=== PATIENT | female | born 2000 | race Hispanic/Latino ===

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

== ENCOUNTER 2022-08-31 16:22 | Emergency (ER) | payer BC, OTHER ==
--- OUTSIDE RECORDS SUMMARY | 2022-08-31 16:26 | XMS REPORT | Continuity of Care Document ---
:2000 Author Organization [facility] t Address [address] [place] [address] Care Team Providers Name Role Phone PCP, PATIENT DOES NOT HAVE A Primary Care Physician UnavailSheri Avilez Attending Clinician Unavailable CRISPIN CHANDLER Attending Clinician Unavailable Crispin Chandler MD Attending Clinician [phone] CLEMENT MARTINEZ Attending Clinician Unavailable Clement Martinez MD Attending Clinician Doctor Unassigned, [place] Attending Clinician Unavailable Coral Moise Attending Clinician Sheri Wilkinson Admitting Clinician Unavailable Physician, No Primary or Family Admitting Clinician UnavailWilliam Agustin Admitting Clinician Unavailable KNOW, DOES_NOT Admitting Clinician Unavailable Payers Payer Name Policy Type Policy Number Effective Date Expiration Date S silvino [facility] [id number] 2018 00:00:00 [facility] 2 [id number] 2021 00:00:00 [facility] [id number] 2021 [place] STAR 00:00:00 Problems Condition Condition Condition Status Onset Resolution Last Treating Co mments Source Name Details Category Date Date Treatment Clinician Date No known No known Disease Kelse y active active Seybold problems problems Allergies, Adverse Reactions, Alerts Allergy Allergy Status Severity Reaction(s) Onset Inactive Treating Comm ents Source Name Type Date Date Clinician No Known DA Active U 2020-0 [facility] No Known DA Active U 2020-0 [facility] 9[facility] 00 [facility] No Known DA Active U 2020-0 [facility]ie 6-17 [facility] 00 [facility] No Known DA Active U 2020-0 [facility] Allergie 6-17 [facility] 00 [facility] No Known DA Active U 2020-0 [facility] Allergie 3-19 [facility] 00:[facility] 00 [facility] No Known DA Active U 2020-0 [facility] Allergie 3-19 [facility] 00:[facility] 00 [facility] NO KNOWN Drug Active Univers ALLERGIE Class ity of S [facility] Social History Social Habit Start Date Stop Date Quantity Comments Source Exposure to Not sure Marylou rosales SARS-CoV-2 (event) Tobacco use and 2021-03-11 2021-03-11 Never used Universit y [facility] exposure 00:00:00 00:00:00 Medical Branch Sex Assigned At [birth year] Marylou Se ybold 00:00:00 00:00:00 Smoking Status Start Date Stop Date Source Never smoker [facility] Medications Ordered Filled Start Stop Current Ordering Indication Dosage Frequency Signature Comments Components Source Medication Medication Date Date Medication? Clinician (SIG) Name Name Escitalopra 2020-11 Yes [id number] 10mg Take 1 Marylou m Oxalate 0-21 tablet (10 Seyb old 10 MG oral 00:00: mg total) Tablet 00 by mouth daily hydrOXYzine 2020-11 Yes Marylou Pamoate 50 0-12 Seybold MG oral 00:00: Capsule 00 Escitalopra 2020-11- No Kelse y m Oxalate 0-12 10-21 Seybold 10 MG oral 00:00: 00:00 Tablet 00 :00 Ferrous Yes [id number] 325mg Take 1 Fady sey Sulfate 325 5-07 tablet Seybol d (65 Fe) MG 00:00: (325 mg oral Tablet 00 total) by mouth daily (with breakfast) iopamidol 2020- No 100mL 100 mL, Uni vers (ISOVUE 03-12 Intravenou ity o f 300-500 mL) 09:15: 09:15 s, ONCE, 1 [place] injection 00 :00 dose, Tue Medic al 100 mL 03/12/21 at Branch 0415, Routine acetaminoph 2020- No 650mg 650 mg, U nivers en 03-12 Oral, ity of (TYLENOL) 03:15: 02:08 ONCE, 1 [place] tablet 650 00 :00 dose, Mon Medi saad mg 03/11/21 at Branch 2215, NINI cefTRIAXone No 1000mg 1,000 mg, Univers (ROCEPHIN) 03-12 IV ity of 1,000 mg in 03:00: 02:36 Piggyback, [place] NaCl 0.9% 00 :00 ONCE, 1 Medical (NS) 50 mL dose, Mon Bran ch MINI-BAG 03/11/21 at 2200, 50 mL
Reas on for Anti-Infec tive: Documented Infection< br>Documen suzi Infection Site: Urine
D uration of Therapy: Other (see Comments) ondansetron No 4mg 4 mg, Slow Univers (ZOFRAN 03-12 IV Push, ity of (PF)) 02:00: 00:58 ONCE, 1 [place] injection 4 00 :00 dose, Mon Med ical mg 03/11/21 at Branch 2100, NINI FENTanyl PF No 50ug 50 mcg, Un sammie (SUBLIMAZE 5-04 05-04 Slow IV ity o f (PF)) 02:00: 00:59 Push, [place] injection 00 :00 ONCE, 1 Medical 50 mcg dose, Mon Branch 03/11/21 at 2100, Routine NaCl 0.9% 2020-0 2020- No 1000mL at 999 Uni vers (NS) bolus 03-12 05-04 mL/hr, ity of infusion 01:00: 02:05 1,000 mL, Chuck as 1,000 mL 00 :00 IV Medical Infusion, Branch ONCE, 1 dose, 03/11/21 at 2000, NINI No known No Univers medications ity [facility] No known No Univers medications ity [facility] No known No Univers medications [facility] Immunizations Ordered Immunization Filled Immunization Date Status Commen ts Source Name Name HPV (Human 2020-09-21 Completed Marylou Quiles Papillomavirus) 00:00:00 Meningococcal 2020-06-27 Completed Marylou Wylie old Vaccine- 00:00:00 Conjugate(Menactra) HPV (Human 2020-06-21 Completed Marylou Quiles Papillomavirus) 00:00:00 HPV (Human 2019-09-15 Completed Marylou Quiles Papillomavirus) 00:00:00 HEPATITIS A- 2013-06-03 Completed Marylou bains PEDI/ADOL 00:00:00 Meningococcal 2013-06-03 Completed Marylou cuellar Vaccine- 00:00:00 Conjugate(Menactra) Tdap- (Boostrix, 2013-06-03 Completed Marylou ramirez Adacel) 00:00:00 Varicella Vaccine 2013-06-03 Completed Marylou Quiles 00:00:00 DTaP Unspecified 2007-03-01 Completed Marylou ramirez 00:00:00 Pneumococcal Vaccine, 2007-03-01 Completed Fady Quiles Conjugate 7 00:00:00 IPV- Inactivated 2007-03-01 Completed Marylou juaresboherson Polio Vaccine 00:00:00 Varicella Vaccine 2007-03-01 Completed Marylou Quiles 00:00:00 Hepatitis B, 2004-01-24 Completed Marylou bains Adolescent Or 00:00:00 Pediatric MMR- Measles, Mumps, 2004-01-24 Completed Norma Quiles Rubella 00:00:00 IPV- Inactivated 2004-01-24 Completed Marylou S eybold Polio Vaccine 00:00:00 Varicella Vaccine 2004-01-24 Completed Marylou Isbellybold 00:00:00 DTaP Unspecified 2003-12-20 Completed Marylou Godinez eybold 00:00:00 Hib (HbOC) 2003-12-20 Completed Marylou Isbellybold 00:00:00 Pneumococcal Vaccine, 2003-12-20 Completed Fady lozada Seybold Conjugate 7 00:00:00 MMR- Measles, Mumps, 2003-01-03 Completed Norma Quiles Rubella 00:00:00 Hepatitis B, 2002 Completed Marylou Rivera ld Adolescent Or 00:00:00 Pediatric IPV- Inactivated 2002 Completed Marylou Godinez eybold Polio Vaccine 00:00:00 DTaP Unspecified 2002 Completed Marylou Godinez eybold 00:00:00 HIB- Haemophilus 2002 Completed Marylou juaresboherson Influenzae Type B 00:00:00 DTaP Unspecified 2002 Completed Marylou Godinez eybold 00:00:00 Hepatitis B, 2002 Completed Marylou Rivera ld Adolescent Or 00:00:00 Pediatric HIB- Haemophilus 2002 Completed Marylou Godinez eybold Influenzae Type B 00:00:00 IPV- Inactivated 2002 Completed Marylou Godinez eybold Polio Vaccine 00:00:00 DTaP Unspecified 2002 Completed Marylou Godinez eybold 00:00:00 HIB- Haemophilus 2002 Completed Marylou Godinez eybold Influenzae Type B 00:00:00 Pneumococcal Vaccine, 2002 Completed Fady Quiles Conjugate 7 00:00:00 IPV- Inactivated 2002 Completed Marylou S eybold Polio Vaccine 00:00:00 Hepatitis B, 2002 Completed Marylou Rivera ld Adolescent Or 00:00:00 Pediatric Vital Signs Vital Name Observation Time Observation Value Comments Source Systolic blood 2021-08-29 16:08:00 106 mm[Hg] Marylou Wylieold pressure Diastolic blood 2021-08-29 16:08:00 70 mm[Hg] Katelyn berry Seybpolo pressure Heart rate 2021-08-29 16:08:00 91 /min Marylou ramirez Body temperature 2021-08-29 16:08:00 37.06 Anu Norma ey Seybold Respiratory rate 2021-08-29 16:08:00 16 /min Norma juares Seybold Body height 2021-08-29 16:08:00 160 cm Marylou Godinez eybold Body weight 2021-08-29 16:08:00 46.72 kg Marylou Godinez eybold BMI 2021-08-29 16:08:00 18.25 kg/m2 Marylou Godinez eybold Body mass index 2021-08-29 16:08:00 8.06 % Fadyse y ybpolo (BMI) [Percentile] Per age and sex Systolic blood 2021-08-29 16:08:00 106 mm[Hg] Marylou Seybold pressure Diastolic blood 2021-08-29 16:08:00 70 mm[Hg] Kelse y Seybold pressure Heart rate 2021-08-29 16:08:00 91 /min Marylou Godinez eybold Body temperature 2021-08-29 16:08:00 37.06 Anu Norma ey Seybold Respiratory rate 2021-08-29 16:08:00 16 /min Norma juares Seybpolo Body height 2021-08-29 16:08:00 160 cm Marylou juaresboherson Body weight 2021-08-29 16:08:00 46.72 kg Marylou juaresbold BMI 2021-08-29 16:08:00 18.25 kg/m2 Marylou Godinez eybold Body mass index 2021-08-29 16:08:00 8.06 % Fadyse y ybold (BMI) [Percentile] Per age and sex Heart rate 2021-03-12 10:00:00 51 /min [facility] Oxygen saturation in 2021-03-12 10:00:00 96 /min University Arterial blood by [facility] Pulse oximetry Branch Systolic blood 2021-03-12 09:30:00 97 mm[Hg] Univer [facility] Diastolic blood 2021-03-12 09:30:00 56 mm[Hg] Unive rsity [facility] Respiratory rate 2021-03-12 09:30:00 17 /min [facility] Body temperature 2021-03-12 08:33:00 36.94 Anu [facility] Systolic blood 2021-03-12 04:11:00 98 mm[facility]Hg[facility] Diastolic blood 2021-03-12 04:11:00 55 mm[facility]Hg[facility] Heart rate 2021-03-12 04:11:00 70 /min [facility] Body temperature 2021-03-12 04:11:00 37.72 Anu [facility] Respiratory rate 2021-03-12 04:11:00 16 /min [facility] Oxygen saturation in 2021-03-12 04:11:00 99 /min [facility] Arterial blood by [facility] Pulse oximetry [place] Body height 2021-03-12 00:16:00 157.5 cm [facility] Body weight 2021-03-12 00:16:00 45.314 kg [facility] BMI 2021-03-12 00:16:00 18.27 kg/m2 [facility] Procedures Procedure Date / Time Performing Clinician Source Performed CT ABDOMEN PELVIS W 2021-03-12 08:05:55 Clement Martinez [facility] CONTRAST [facility] CONSENT/REFUSAL FOR 2021-03-12 05:36:36 Doctor Unassigned, No Un [facility] DIAGNOSIS AND TREATMENT Name Medical Branch US PELVIS COMPLETE WITH 2021-03-12 01:30:25 Coral Granado [facility] TRANSVAGINAL [facility] HB ABO GROUPING 2021-03-12 01:07:[address] [facility] LIPASE 2021-03-12 00:55:[address] [facility] COMP. METABOLIC PANEL 2021-03-12 00:55:[id number] CBC WITH DIFF 2021-03-12 00:55:[address] [facility] COVID-19 (ID NOW RAPID 2021-03-12 00:55:00 Coral Granado [facility] TESTING) Medical [place] URINALYSIS 2021-03-12 00:33:00 Coral Granado [place] [facility] POCT TEST 2021-03-12 00:33:00 Coral Granado [facility] NOTICE OF PRIVACY 2021-03-12 00:06:33 Doctor Unassigned, No [facility] CONSENT/REFUSAL FOR 2021-03-12 00:05:49 Doctor Unassigned, No [facility]REAT[facility] Name [facility] [id number] 2020-07-12 00:00:00 HENDE.[email or web address] [facility] [id number] 2020-07-12 00:00:00 HENDE.01 [facility] [id number] 2020-07-12 00:00:00 HENDE.[email or web address] [facility] Encounters Start End Encounter Admission Attending Care Care Encounter Source Date/Time Date/Time Type Type Clinicians Facility Department ID 2021-09-08 Emergency [facility] [id number] Univers 16:51:39 ity [facility] 2020-07-18 Inpatient AIYANA Wilkinson, [facility] [id number] [facility] 19:00:00 Sheri 95 [facility] [place] 2020-07-12 Inpatient Wilkinson, [facility] LINDA [id number] [facility] 12:03:00 Sheri 66 [facility] [place] 2020-07-05 Inpatient Wilkinson, [facility] LINDA [id number] [facility] 04:58:00 Sheri 12 [facility] [place] 2020-06-09 Inpatient EM Wilkinson, [facility] LINDA [id number] [facility] 00:04:00 Sheri 90 [facility] [place] 2020-05-22 Inpatient Wilkinson, [facility] LINDA [id number] [facility] 09:28:00 Sheri 97 [facility] [place] 2020-05-09 Inpatient EM Wilkinson, [facility] LINDA [id number] [facility] 00:04:00 Sheri 61 [facility] [place] 2020-04-25 Inpatient EM Wilkinson, [facility] LINDA [id number] [facility] 08:31:00 Sheri 45 [facility] [place] 2020-01-26 Inpatient EL Wilkinson, [facility] ADMI [id number] [facility] 15:33:00 Sheri 42 [facility] [place] 2021-10-30 2021-10-30 Outpatient MARYLOU CHANDLER [id number] Marylou 00:00:00 00:00:00 CRISPIN rosales 2021-08-29 2021-08-29 Office Getachew Chandler [id number] 11:02:58 11:47:58 Visit Crispin Mike [id number] Somogyi [id number] [id number] 2021-08-29 2021-08-29 Office Christopher, Chilel [id number] Marylou 11:02:58 11:47:58 Visit Crispin Mike [id number] Se ybold Somogyi [id number] [id number] 2021-08-29 2021-08-29 Outpatient MARYLOU CHANDLER [id number] Marylou 11:30:00 11:30:00 CRISPIN rosales 2021-08-28 2021-08-28 Outpatient MARYLOU CHANDLER [id number] Marylou 00:00:00 00:00:00 CRISPIN rosales 2021-03-12 2021-03-12 Emergency [facility] [id number] Univers 00:40:00 05:33:00 CLEMENT rocha [facility] 2021-03-12 2021-03-12 [facility] [id number] Univers 00:40:00 05:33:00 [facility] [id number] [place]7.2.686 [place] [id number] [address] ([facility]) 2021-03-12 2021-03-12 Orders Doctor JESUS [id number] Univers 00:00:00 00:00:00 Only Unassigned, CONCEPCIÓN [id number] ity of [place] [facility] 4.2.7.2.686 Chuck as [id number] [address] 2021-03-11 2021-03-11 Emergency [facility] [id number] [facility] [place] 19:22:00 23:42:00 Coral Frost [id number] i ty of [place] 4.2.7.2.686 [facility] [id number] [facility] 084 Branch 2020-05-15 2020-05-15 Outpatient Stevo [facility] RADI [id number] [facility] 07:00:00 07:00:00 Sheri 91 [facility] 2020-02-22 2020-02-22 [facility] [id number] [facility] 07:00:00 07:00:00 Sheri 65 [facility] Results Test Description Test Time Test Comments Results Result Sourc e Comments CT ABDOMEN Fluid in nondilated Unive rsity of PELVIS W 4 small bowel and colon Chuck as Medical CONTRAST 09:06:58 suggesting Branch underlyingenteritis. The appendix is seen and is normal in caliber without adjacent stranding. Levoconvex lumbar scoliosis RL: 109AFC: [id number] End of report Examination: Computed tomography of the abdomen and pelvis with contrast Ordering Physician: ADELE MARTINEZ Date: 03/12/2021 1:15 AM History: RLQ abdominal pain, appendicitis suspected (Age >= 14y) Comparison: None available Technique: Computed tomography of the abdomen and pelvis was performedafter the administration of nonionic intravenous contrast. ?Exams wereperformed using dose reduction techniques according to ALARA (as low asreasonably achievable) principles. Findings: Images of the lung bases are clear. The liver, gallbladder, spleen, pancreas, adrenal glands and kidneys areunremarkable. The appendix is seen and measures 6.8 mm in maximum dimension, see coronalimage 32. The tip of the appendix is on coronal image 29 and 30 and itappears normal in caliber. There is a tubular fluid-filled structure nearthe cecum which is the distal/terminal ileum. Fluid is seen in the smallbowel and colon. No evidence of bowel obstruction. No free fluid or free air. Portal and splenic veins are patent. Subcentimeter mesenteric lymph nodes. Uterus unremarkable. Follicular changes in the ovaries bilaterally. Bladdergrossly unremarkable. Bone windows show levoconvex scoliosis of the lumbar spine. [facility], Radiant Results Inft User - 03/12/2021 4:08 AM CDTExamination: Computed tomography of the abdomen and pelvis with contrastOrdering Physician: CLEMENT Strauss: 03/12/2021 1:15 AMHistory: RLQ abdominal pain, appendicitis suspected (Age >= 14y) Comparison: None availableTechnique: Computed tomography of the abdomen and pelvis was performedafter the administration of nonionic intravenous contrast. Exams wereperformed using dose reduction techniques according to ALARA (as low asreasonably achievable) principles.Findings:I mages of the lung bases are clear.The liver, gallbladder, spleen, pancreas, adrenal glands and kidneys areunremarkable.The appendix is seen and measures 6.8 mm in maximum dimension, see coronalimage 32. The tip of the appendix is on coronal image 29 and 30 and itappears normal in caliber. There is a tubular fluid-filled structure nearthe cecum which is the distal/terminal ileum. Fluid is seen in the smallbowel and colon. No evidence of bowel obstruction.No free fluid or free air.Portal and splenic veins are patent. Subcentimeter mesenteric lymph nodes.Uterus unremarkable. Follicular changes in the ovaries bilaterally. Bladdergrossly unremarkable.Bone windows show levoconvex scoliosis of the lumbar spine.IMPRESSIONFluid in nondilated small bowel and colon suggesting underlyingenteritis.T he appendix is seen and is normal in caliber without adjacent stranding.Levoconvex lumbar scoliosisRL: 109AFC: [id number] of report Type and Screen - ONCE STAT 2021-03-12 02:01:18 Test Item Value Reference Range Interpretation Comme nts ABO & RH (test code = 20) A Positive Pe rformed at [facility] Laboratory Services - [facility] Blood [address] [place], [place] [address]Toll Free: [phone] A No. [id number] IAT (test code = 1185) Negative Perfo rmed at [facility] Laboratory Services - [facility] Blood [address] [place], [place] [address]Toll Free: [phone] A No. [id number] [facility]. METABOLIC PANEL ([id number])2021-03-12 01:36:09 Test Item Value Reference Range Interpretation Comments NA (test code = 135 mmol/L 135-145 0277362134) K (test code = 3.5 mmol/L 3.5-5.0 0458176333) CL (test code = 101 mmol/L 98-108 5768327271) CO2 TOTAL (test code 25 mmol/L 23-31 = 9373468682) AGAP (test code = 2-16 2223525937) BUN (test code = 8 mg/dL 7-23 0131832204) GLUCOSE (test code = 100 mg/dL 70-110 1318743350) CREATININE (test code 0.63 mg/dL 0.50-1.04 = 5198842245) TOTAL BILI (test code 0.9 mg/dL 0.1-1.1 = 0440689404) CALCIUM (test code = 9.1 mg/dL 8.6-10.6 7206283657) T PROTEIN (test code 7.2 g/dL 6.3-8.2 = 6015145711) ALBUMIN (test code = 4.2 g/dL 3.5-5.0 7246154225) ALK PHOS (test code = 72 U/L 34-122 7195893412) ALTv (test code = 10 U/L 5-35 1742-6) AST(SGOT) (test code 19 U/L 13-40 = 2946435144) eGFR (test code = mL/min/1.73m2 9969024277) ROSANGELA (test code = ROSANGELA) Association of Glomerular Filtration Rate (GFR) and Staging of Kidney Disease* + + +- +| GFR (mL/min/1.73 m2) ?| With Kidney Damage ?| ?Without Kidney Damage+ ------+ ----+ ------+| ?>90 ?| ?Stage one ?| ? Normal ?+ -+ + -+| ?60-89 ?| ?Stage two ?| ? Decreased GFR ? + + +- +| ?30-59 ?| ?Stage three ?| ? Stage three ? + + +- +| ?15-29 ?| ?Stage four ? | ? Stage four ?+ -+ + -+| ?<15 (or dialysis) ? ?| ?Stage five ? | ? Stage five ?+ -+ + -+ *Each stage assumes the associated GFR level has been in effect for at least three months. ?Stages 1 to 5, with or without kidney disease, indicate chronic kidney disease. Notes: Determination of stages one and two (with eGFR >59mL/min/1.73 m2) requires estimation of kidney damage for at least three months as defined by structural or functional abnormalities of the kidney, manifested by either:Pathological abnormalities or Markers of kidney damage (including abnormalities in the composition of the blood or urine or abnormalities in imaging tests). [facility]32 Test Item Value Reference Range Interpretation Comments LIPASE (test code = 8916921889) 43 U/L 0-220 Lab Interpretation (test code = Normal 93940-8) [facility] (ID NOW RAPID TESTING)2021-03-12 01:29:26 Test Item Value Reference Range Interpretation Comments SARS-CoV-2 Rapid ID NOW Not Detected Not Detected (test code = 85120-5) ROSANGELA (test code = ROSANGELA) ID NOW COVID-19 Assay is an isothermal nucleic acid amplification test intended for the qualitative detection of nucleic acid from SARS-CoV-2 viral RNA in nasopharyngeal ([employer]OWERHOU[employer]PERVISOR) specimens. It is used under Emergency Use Authorization (EUA) by FDA. The limit of detection (LOD) of the assay is 125 Genome Equivalents/mL. A positive result is indicative of the presence of SARS-CoV-2 RNA. ?Clinical correlation with patient history and other diagnostic information is necessary to determine patient infection status. A negative (Not Detected) result does not preclude SARS-CoV-2 infection. In patients with clinical symptoms and other tests that are consistent with SARS-CoV-2 infection, negative results should be treated as presumptive negative and a new specimen should be tested with alternative PCR molecular test. Invalid: Please collect a new specimen for repeat patient testing if clinically indicated. Lab Interpretation Normal (test code = 18524-2) [facility] 01:21:22 Test Item Value Reference Range Interpretation Comments APPEARANCE (test code = Hazy Clear A 7416162100) COLOR (test code = Yellow Yellow 7020726201) PH (test code = 4.8-8.0 6470444533) SP GRAVITY (test code = 1.003-1.030 8262489515) GLU U QUAL (test code = Normal Normal 2339831128) BLOOD (test code = 1+ Negative A 6776958616) KETONES (test code = Negative Negative 5063889528) PROTEIN (test code = Negative Negative 2887-8) UROBILIN (test code = 2.0 mg/dL Normal A 3468688360) BILIRUBIN (test code = Negative Negative 1036526351) NITRITE (test code = Negative Negative 7168037648) LEUK CAROLIN (test code = 250/uL Negative A 4316421278) RBC/HPF (test code = See_Comment [Autom ated message] 4641178053) The system Andel generated this result transmit suzi reference range : 0 - 3 HPF. The refe rence range was not u sed to interpret th is result as normal/abnormal . WBC/HPF (test code = See_Comment H [Autom ated message] 1020246461) The system Andel generated this result transmit suzi reference range : 0 - 5 HPF. The refe rence range was not u sed to interpret th is result as normal/abnormal . BACTERIA (test code = Few Negative A 8977773835) MUCOUS (test code = Moderate Negative LPF A 9633762697) SQ EPITH (test code = HPF 8260301171) Lab Interpretation (test Abnormal code = 06787-4) [facility] WITH [id number] 01:15:04 Test Item Value Reference Range Interpretation Comments WBC (test code = See_Comment H [Automated 9090-2) message] The system which generated this result transmit suzi reference range : 4.30 - 11.10 10*3/?L. The reference range was not used to interpret this result as normal/abnormal . RBC (test code = See_Comment [Automated 829-8) message] The system which generated this result transmit suzi reference range : 3.93 - 5.25 10*6/?L. The reference range was not used to interpret this result as normal/abnormal . HGB (test code = 10.9 g/dL 11.6-15.0 L 718-7) HCT (test code = 34.0 % 35.7-45.2 L 4544-3) MCV (test code = 80.0 fL 80.6-95.5 L 787-2) MCH (test code = 25.6 pg 25.9-32.8 L 785-6) MCHC (test code = 32.1 g/dL 31.6-35.1 786-4) RDW-SD (test code = 37.7 fL 39.0-49.9 L 33992-2) RDW-CV (test code = 13.2 % 12.0-15.5 788-0) PLT (test code = See_Comment H [Automated 777-3) message] The system which generated this result transmit suzi reference range : 166 - 358 10*3/ ?L. The reference range was not u sed to interpret th is result as normal/abnormal . MPV (test code = 11.5 fL 9.5-12.9 52040-7) NRBC/100 WBC (test See_Comment [Automat ed code = 1109528508) message] The system which generated this result transmit suzi reference range : 0.0 - 10.0 /100 WBCs. The reference range was not used to interpret this result as normal/abnormal . NRBC x10^3 (test code <0.01 See_Comment [Auto mated = 1513504241) message] The system which generated this result transmit suzi reference range : 10*3/?L. The reference range was not used to interpret this result as normal/abnormal . GRAN MAT (NEUT) % 82.1 % (test code = 770-8) IMM GRAN % (test code 0.90 % = 5268145199) LYMPH % (test code = 10.1 % 736-9) MONO % (test code = 6.6 % 5905-5) EOS % (test code = 0.1 % 713-8) BASO % (test code = 0.2 % 706-2) GRAN MAT x10^3(ANC) 14.42 10*3/uL 1.88-7.09 H (test code = 3390158094) IMM GRAN x10^3 (test 0.16 10*3/uL 0.00-0.06 H code = 7394168200) LYMPH x10^3 (test code 1.78 10*3/uL 1.32-3.29 = 731-0) MONO x10^3 (test code 1.16 10*3/uL 0.33-0.92 H = 742-7) EOS x10^3 (test code = <0.03 0.03-0.39 L 711-2) BASO x10^3 (test code 0.04 10*3/uL 0.01-0.07 = 704-7) Lab Interpretation Abnormal (test code = 98778-0) [id number] Test Item Value Reference Range Interpretation Comments POCT PREG (test code = 1605) negative On board controls acceptable with present C Line (test code = 3574) POCT PREG LOT # (test code = 3575) [id number] POCT PREG TEST DATE (test 10/08/2022 code = 3576) Lab Interpretation (test code = Normal 12233-7) [facility] THIRD [id number] 18:00:00 RUN DATE: 07/20/20 [facility] PAGE 1 RUN TIME: 817 Specimen Inquiry RUN USER: INTERFACE -PATIENT: ROSELIA YOUNGER LOC: LIONEL U #: [id number] AGE/SX: 20/F ROOM: [facility] RE07/12/20REG DR: Sheri Wilkinson MD : 02 BED: A DIS: 07/15/20 STATUS: DIS IN TLOC: SPEC #: [id number] RECD: 07/12/20 STATUS: SOLO HORTA #: [id number] OSVALDO: 07/12/20- SUBM DR: Sheri Wilkinson MD ENTERED: 07/17/20 SP TYPE: PLACIII OTHR DR: ORDERED: LEVEL V SURGICA CODES: [id number] - PLACENTA, NOS PROCEDURES: LEVELV SURGICA (Incomplete) TISSUES: PLACENTA, NOS - PLACENTA CLINICAL HISTORY 20 year old, 39.5 weeks, [id number], vaginal delivery, chlamydia (kr) FINAL DIAGNOSIS Placenta, 39.5 weeks gestational age, vaginal delivery: - third trimester placenta, 580 gms (80th percentile) - acute chorioamnionitis (Stage 1, Grade 1) - mild acute umbilical cord phlebitis (Stage 1, Grade 1) - meconium macrophages within membranes - delayed villous maturation CPT code(s): 72293 [facility] GROSS DESCRIPTION The specimen was received in a container, labeled with the patient's name, unit number and designated "placenta". The following attributes are observed: Cord insertion: 5 cm from margin Cord length: 35 cm Number of v essels: 3 Cord color: Delgadillo-white Other cord findings: None surface findings: Blue-purple, wrinkled, glistening with focal subchorionic fibrin deposition Vasculature: Displays unremarkable blood vasculature Membranes rupture site: 10 cm to margin Membrane color: Delgadillo-pink Other membrane findings: Semi-translucent, circummarginate The trimmed placental weight: 580 gm Disk measurement: 19 x 16 x 4 cm in greatest dimension CONTINUED ON NEXT PAGE RUN DATE: 07/20/20 [facility] PAGE 2 RUN TIME:817 Specimen Inquiry RUN USER: INTERFACE SPEC #: [id number] PATIENT: ROSELIA YOUNGER #[id number] (Contin ued) GROSS DESCRIPTION (Continued) Accessory lobes: None Maternal surface: Lobulated and disrupted, but complete Parenchyma: Red-brown and spongy Parenchyma lesions: None Cassettes: A1 through A4 larisa 07/17/20-- Signed Tana Tony MD 07/19/20 1800 END OF REPORT PROTHROMBIN [id number] 06:32:00 Test Item Value Reference Range Interpretation Comments PROTHROMBIN TIME PATIENT (test code 10.6 secs 10.4-12.4 N = PTP) THROMBOPLASTIN TIME [id number] 06:32:00 Test Item Value Reference Range Interpretation Comments THROMBOPLASTIN TIME PARTIAL (test 26.5 secs 22-38 N code = PTT) [id number] 06:32:00 Test Item Value Reference Range Interpretation Comments FIBRINOGEN (test code = FIB) 323 mg/dL 309-518 N CBC W/AUTO [id number] 06:13:00 Test Item Value Reference Range Interpretation Comments WHITE BLOOD CELL (test 25.4 K/mm3 6.6-12.1 HH RESUL TS CALLED TO code = WBC) JOANIE.READ BACK & CONFIRMED? CRISTÓBAL SungBY CATRINA 0613. RED BLOOD CELL (test 3.84 M/mm3 3.45-5.01 [...] (test code = PLTMR) AG HEPATITIS B [id number] 15:11:00 Test Item Value Reference Range Interpretation Comments AG HEPATITIS B SURFACE (test code NONREACTIVE NONREACTIVE = HBSAG) AB HEPATITIS C [id number] 15:11:00 Test Item Value Reference Range Interpretation Comments AB HEPATITIS C (test code = NONREACTIVE NONREACTIVE HCVAB) SIGNAL TO CUTOFF (test code = 0.19 <0.80 N CUTOFF) AB [id number] 15:11:00 Test Item Value Reference Range Interpretation Comments AB TREPONEMA (test code = TREPAB) NONREACTIVE NONREACTIVE AB HIV 1 15:11:00 Test Item Value Reference Range Interpretation Comments AB HIV 1 2 (test NONREACTIVE NONREACTIVE [facility] code = UPL17EP) 4th Gen HIV Ag/Ab Combo Screen COVID 19 Asymptomatic IH [id number] 13:48:00 Test Item Value Reference Range Interpretation Comments COVID 19 NEGATIVE NEGATIVE This test has b een Asymptomatic IH AG authorize d only for the (test code = detection ofpro teins from COVNONPUIAG) SARS-CoV-2, not for any other viruses orpathogens. Ne gative results should be treated as presumptive andconfirmed [...] ncy Use Authorization(E UA) for use by adelitaato jose certified under the CLIA thatmeet the re quirements to perform mode rate, high or waivedcomple xity tests. This jason t is authorized for use at thePoint of Car e (POC), i.e., in patien t care settingsoperati ng under a CLIA Certificat e of Waiver, Certifi shmuel ofCompliance, o r Certificate of Accreditation. This test is only authori zed for the duration of thedeclaration that circumstances e xist justifying theauthorizatio n of emergency use o f in vitro diagnostic test sfor detection and/o r diagnosis of CO VID-19 under Vflvosj12 4(b)(1) of the Act, 21 U.S .C. 360bbb-3(b)(1), unless theauthorizatio n is terminated or r evoked sooner. CBC W/AUTO [id number] 13:10:00 Test Item Value Reference Range Interpretation [...] code = PLTMR) - US PREG UT [id number] 00:00:00 Patient Name: ROSELIA YOUNGER Unit No: [id number] EXAMS: CPT CODE: [id number] US PREG UT TRANSVAGINAL [address] [facility] [address] [place], [place] [address] OBSTETRICAL ULTRASOUND REPORT Pat. Name: ROSELIA YOUNGER Pat. No: [id number] Study Date: 05/15/2020 7:38am , Age: 02 2000, 20 Pregnancies: 1, Para 0 LMP:Unknown GA by 1st: 31w3d GA by US: 31w2d GA Selected: 31w3d (From First S) FABIOLA: 07/14/2020 ReferringMD: SHERI WILKINSON [employer]: Alia Rios RDMS CPT4: USPREGFU Admitting MD: SHERI WILKINSON/Ind: SCAN 2 SIZE LESS THAN DATES MEASUREMENTS AGE GROWTH EVALUATION Measurement GA Range Srce %for GA Ratios ----- ---- ------- BPD 8.0 cm 32w3d (25j7b-17a1w) Hadl BPD 66% FL/BPD 0.74 (0.71 - 0.87) HC 29.6 cm 32w2d (55k9z-17b5i) Hadl HC 63% FL/AC 0.22 (0.20 - 0.24) APD 8.8 cm APD HC/AC 1.09 (0.96 - 1.15) TAD 8.5 cm TAD CI 0.80 (0.70 - 0.86) AC 27.2 cm 31w2d (28w2d- 34w2d) Hadl AC 48% FL 5.9 cm 30w3d (10m1v-97t1r) Hadl FL 35% HL 5.0 cm 29w2d (65h0d-96d2f) Stef HL14% GA for sonogram 31w2d (19q2h-93k4a) Weight Estimate: based on (BPD,HC,AC,FL) Hadlock Weight: 1743 gm (8681-4093) Hadlo : 3lbs, 13oz Normal: 1707 gm (8508-4543) Breelda Wt% 52% for 31.4 wks Cervical Length: 2.3 cm Heart Rate: 145 bpm Amniotic Fluid Index: 14.5cm (08.7- 24.0) Q1: 5.3cm Q2: 2.8cm Q3: 2.6cm Q4: 3.8cm MATERNAL ANATOMY Ovaries LxHxW (cm) Right 1.8 x 1.2 x 1.6 Vol: 1.8cc Left 2.7 x 1.2 x 1.7 Vol: 2.9cc Ovarian Cysts LxHxW (cm) R1: 1.1 x 0.8 x 1.1 Desc: Follicular --- [facility] NAME: ROSELIA YOUNGER Radiology Department PHYS: GRACE - Sheri Wilkinson MD [address] : 2000 AGE: 20 SEX: F [place], [place] [address] LOC: RadhaRAD PHONE #: [phone] EXAM DATE: 05/15/2020 STATUS: FREDY MAX FAX #: [phone] RAD NO: Page 1 Signed Report (CONTINUED) Patient Name: ROSELIA YOUNGER Unit No: [id number] EXAMS: CPT CODE: [id number] [facility] TRANSVAGINAL 19313 (Continued) CLINICAL SUMMARY Type of Gestation: Perez Intrauterine [...] care of this patient. Nathan Francois M.D. <Electronic Signature> 05/15/2020 09:55am Revised " Manually signed by Nathan Francois MD Reported and signed by: Nathan Francois MD CC: Technologist: Alia Rios RDMS Probe: [id number] Trnscrbd D/ (699) ANT Advanced To Signed Dt/Tm/User: 05/21/20 (07) ANT Orig Print D/T: S: 05/21/2020 (699) [facility] NAME: ROSELIA YOUNGER Radiology Department PHYS: GRACE - Sheri Wilkinson MD [address] : 2000 AGE: 20 SEX: F [place], [place] [address] LOC: F.RAD PHONE #: [phone] EXAM DATE: 05/15/2020 STATUS: FREDY CLI FAX #: [phone] RAD NO: Page 2 Signed Report Patient Name: ROSELIA YOUNGER Unit No: [id number] EXAMS: CPT CODE: [id number] US PREG UT TRANSVAGINAL [address] (Continued) [facility] NAME: MONICA YOUNGERARadiology Department PHYS: MARIELLE. - Sheri Wilkinson MD [address] : 2000 AGE: 20 SEX: [place] [address] LOC: VONDA PHONE #: [phone] EXAM DATE: 05/15/2020 STATUS: FREDY CLI FAX #: [phone] RAD NO: Page 3 Signed Report- US FLW [id number] 09:55:00 Patient Name: ROSELIA YOUNGER Unit No: [id number] Report Has Been Amended EXAMS: CPT [place]: [id number] [place] [address] Addendum - 05/15/2020 SIGNED 05/15/2020 ADDENDUM: [id number] [facility] [address] [place], [place] [address] OBSTETRICAL ULTRASOUND REPORT Pat. Name: ROSELIA YOUNGER Pat. No: [id number] Study Date: 05/15/2020 7:38am , Age: 02 2000, 20 Pregnancies: 1, Para 0 LMP: Unknown GA by 1st: 31w3d GA by US: 31w2d GA Selected: 31w3d (From First S) FABIOLA: 07/14/2020 Referring MD: SHERI WILKINSON Laborer [employer]: Alia Rios RDMS CPT4: USPREGFU Admitting MD: SHERI WILKINSON Hist/Ind: SCAN 2 SIZE LESS THAN DATES MEASUREMENTS AGE GROWTH EVALUATION Measurement GA Range Srce %for GA Ratios ----- ---- ------- BPD 8.0 cm 32w3d (32u4i-31f9u) Hadl BPD 66% FL/BPD 0.74 (0.71 - 0.87) HC 29.6 cm 32w2d (22q1g-42n3f) Hadl HC 63% FL/AC 0.22 (0.20 - 0.24) APD 8.8 cm APD HC/AC 1.09 (0.96 - 1.15) TAD 8.5 cm TAD CI 0.80 (0.70 - 0.86) AC 27.2 cm 31w2d (49m4m-24w1y) Hadl AC 48% FL 5.9 cm 30w3d (71c2z-64a4i) Hadl FL 35% HL 5.0 cm 29w2d (14z9n-00e1j) Stef HL 14% GA for sonogram 31w2d (20w5z-01g4f) Weight Estimate: based on (BPD,HC,AC,FL) Hadlock Weight:1743 gm (4668-3434) Hadlo : 3lbs, 13oz Normal: 1707 gm (5205-3212) Brenn Wt% 52% for 31.4 wks Cervical Length: 2.3 cm Heart Rate: 145 bpm Amniotic Fluid Index: 14.5cm (08.7- 24.0) Q1: 5.3cm Q2: 2.8cm Q3: 2.6cm Q4: 3.8cm MATERNAL ANATOMY Ovaries LxHxW (cm) Right 1.8 x 1.2 x 1.6 Vol: 1.8cc Left 2.7 x 1.2 x 1.7 Vol: 2.9cc Ovarian Cysts LxHxW (cm) R1: 1.1 x 0.8 x 1.1 Desc: [facility] NAME: ROSELIA YOUNGER Radiology Department PHYS: Sheri Waddell MD [address] : 2000 AGE: 20 SEX: F [place], [place] [address] LOC: RadhaRAD PHONE #: [phone] EXAM DATE: 05/15/2020 STATUS: REG CLI FAX #: [phone] RAD NO: Page 1 Signed Report (CONTINUED) Patient Name: ROSELIA YOUNGER Unit No: [id number] Report Has Been Amended EXAMS: CPT CODE: [id number] [place] [facility] [place] [address] (Continued) CLINICAL SUMMARY Type of Gestation: Perez Intrauterine [...] Francois M.D. Electronic Signature 05/15/2020 09:55am Revised at 0955 Reported and signed by: Nathan Francois MD Transcribed: 05/15/2020 (0923) [email or web address] Addendum - 05/15/2020 SIGNED 05/15/2020 ADDENDUM: [id number] [place] [address] [place] [address] OBSTETRICAL ULTRASOUND REPORT Pat. Name: ROSELIA YOUNGER Pat. No: [id number] StudyDate: 05/15/2020 7:38am , Age: 02 2000, 20 Pregnancies: 1, Para 0 LMP: Unknown GA by 1st: 31w3d GA by US: 31w2d GA Selected: 31w3d (From First S) FABIOLA: 07/14/2020 Referring MD: SHERI WILKINSON Laborer [employer]: Alia Rios RDMS CPT4: USPREGFU [facility] NAME: ROSELIA YOUNGER Radiology Department [place]: [place] [address] [place] [address] : 2000 AGE: 20 SEX: F [place] [address] LOC: F.RAD PHONE #: [phone] EXAM DATE: 05/15/2020 STATUS: REG CLI FAX #: [phone] RAD NO: Page 2 Signed Report (CONTINUED) Patient Name: ROSELIA YOUNGER Unit No: [id number] Report Has Been Amended EXAMS: CPT CODE: [id number] [place] [address] (Continued) Admitting MD: SHERI WILKINSON Hist/Ind: SCAN 2 SIZE LESS THAN DATES MEASUREMENTS AGE GROWTH EVALUATIONMeasurement GA Range Srce %for GA Ratios ----- ---- ------- BPD 8.0 cm 32w3d (94n3c-55g9x) Hadl BPD 66% FL/BPD 0.74 (0.71 - 0.87) HC 29.6 cm 32w2d (37i4w-92n9f) Hadl HC 63% FL/AC 0.22 (0.20 - 0.24) APD 8.8 cm APD HC/AC 1.09 (0.96 - 1.15) TAD 8.5 cm TAD CI 0.80 (0.70 - 0.86) AC 27.2 cm 31w2d (28w2d- 34w2d) Hadl AC 48% FL 5.9 cm 30w3d (52e0g-34z8n) Hadl FL 35% HL 5.0 cm 29w2d (57k7t-22t3i) Stef HL 14% GA for sonogram 31w2d (52m0u-22p4m) Weight E stimate: based on (BPD,HC,AC,FL) Hadlock Weight: 1743 gm (8317-4950) Hadlo : 3lbs, 13oz Normal: 1707 gm (2424-2270) Brenn Wt% 52% for 31.4 wks Cervical Length: 2.3 cm Heart Rate: 145 bpm Amniotic Fluid Index: 14.5cm (08.7- 24.0) Q1: 5.3cm Q2: 2.8cm Q3: 2.6cm Q4: [...] seen. Cervix length is 2.3 cm. [facility] NAME: ROSELIA YOUNGER Radiology Department PHYS: Sheri Waddell MD [address] : AGE: 20 SEX: F [place], [place] [address] LOC: F.RAD PHONE #: [phone] EXAM DATE: 05/15/2020 STATUS: REG CLI FAX #: [phone] RAD NO: Page 3 Signed Report (CONTINUED) Patient Name: ROSELIA YOUNGER Unit No: [id number] Report Has Been Amended EXAMS: CPT CODE: [id number] [place] [address] (Continued) Thank you for allowing us to participate in the care of this patient. Nathan Francois M.D. Electronic Signature 05/15/2020 08:28am Revised at 0828 Reported and signed by: Nathan Francois MD Transcribed: 05/15/2020 (0828) [email or web address].[email or web address] Report [facility] [place], [place] [address] OBSTETRICAL ULTRASOUND REPORT Pat. Name: ROSELIA YOUNGER Pat. No: [id number] Study Date: 05/15/2020 7:38am , Age: 02 2000, 20 Pregnancies: 1, Para 0 LMP: Unknown GA by 1st: 31w3d GA by US: 31w2d GA Selected: 31w3d (From First S) FABIOLA: 07/14/2020 Referring MD: SHERI WILKINSON Laborer [employer]: Alia Rios RDMS CPT4: USPREGFU Admitting MD: SHERI WILKINSON Hist/Ind: SCAN 2 SIZE LESS THAN DATES MEASUREMENTS AGEFETAL GROWTH EVALUATION Measurement GA Range Srce %for GA Ratios ----- ---- ------- BPD 8.0 cm 32w3d (03d7c-90x7w) Hadl BPD 66% FL/BPD 0.74 (0.71 - 0.87) HC 29.6 cm 32w2d (15p7h-20l5l) Hadl HC 63% FL/AC 0.22 (0.20 - 0.24) APD 8.8 cm APD HC/AC 1.09 (0.96 - 1.15) TAD 8.5 cm TAD CI 0.80 (0.70 - 0.86) AC 27.2 cm 31w2d (28w2d- 34w2d) Hadl AC 48% FL 5.9 cm 30w3d (57u8h-02s8v) Hadl FL 35% HL 5.0 cm 29w2d (81i4x-49n4a) Stef HL 14% GA for sonogram 31w2d (83j7k-52v8m) Weight Estimate: based on (BPD,HC,AC,FL) Hadlock Weight: 1743 gm (8378-5000) Hadlo : 3lbs, 13oz Normal: 1707 gm (8286-4761) Brenn Wt% 52% for 31.4 wks [facility] NAME: YOUNGER,ROSELIA Radiology Department PHYS: MARIELLE.01 - Sheri Wilkinson MD [address] : 2000 AGE: 20 SEX: F [place] [address] LOC: VONDA PHONE #: [phone] EXAM DATE: 05/15/2020 STATUS: GAYLE MAX FAX #: [phone] RAD NO: Page 4 Signed Report (CONTINUED) Patient Name: ROSELIA YOUNGER Unit No: [id number] Report Has Been Amended EXAMS: CPT CODE: [id number] [place] [address] (Continued) Cervical Length: 2.3 cm Heart Rate: 145 [...] and signed by: Nathan Francois MD CC: Sheri Wilkinson MD Technologist: Alia Rios RDMS Probe: Trnscrbd D/ (0828) t.[email or web address] Orig Print D/T: S: 05/15/2020 (0828) [facility] NAME: MONICA YOUNGERA Radiology Department PHYS: Sheri Waddell MD [address] : 2000 AGE: 20 SEX: F [place], [place] [address] LOC: RadhaRAD PHONE #: [phone] EXAM DATE: 05/15/2020 STATUS: REG CLI FAX #: [phone] RAD NO: Page 5 Signed Report Patient Name: ROSELIA YOUNGER Unit No: [id number] Report Has Been Amended EXAMS: CPT CODE: [id number] [place] [address] (Continued) [facility] NAME: MONICA YOUNGERA Radiology Department PHYS: Sheri Waddell MD [address] : 2000 AGE: 20SEX: [place], [place] [address] LOC: VONDA PHONE #: [phone] EXAM DATE: 020 STATUS: GAYLE MAX FAX #: [phone] RAD NO: Page 6 Signed Report- US FLW [id number] 08:28:00 Patient Name: ROSELIA YOUNGER Unit No: [id number] EXAMS: C[place]: [id number] [place] [address] [facility] [address] [place], [place] [address] OBSTETRICAL ULTRASOUND REPORT Pat. Name: ROSELIA YOUNGER Pat. No: [id number] Study Date: 05/15/2020 7:38am , Age: 02 2000, 20 Pregnancies: 1, Para 0 LMP: Unknown GA by 1st: 31w3d GA by US: 31w2d GA Selected: 31w3d (From First S) FABIOLA: 07/14/2020 Referring MD: SHERI BRANCH Laborer [employer]: Alia Rios RDMS CPT4: USPREGFU Admitting MD: SHERI WILKINSON Hist/Ind: SCAN 2 SIZE LESS THAN DATES MEASUREMENTS AGE GROWTH EVALUATION Measurement GA Range Srce %for GA Ratios ----- ---- ------- BPD 8.0 cm 32w3d (18f1d-76x2w) Hadl BPD 66% FL/BPD 0.74 (0.71 - 0.87) HC 29.6 cm 32w2d (82l6f-58w3w) Hadl HC 63% FL/AC 0.22 (0.20 - 0.24) APD8.8 cm APD HC/AC 1.09 (0.96 - 1.15) TAD 8.5 cm TAD CI 0.80 (0.70 - 0.86) AC 27.2 cm 31w2d (59o1o-58g9q) Hadl AC 48% FL 5.9 cm 30w3d (72f5p-58i1l) Hadl FL 35% HL 5.0 cm 29w2d (79t6p-20t3k) Stef HL 14% GA for sonogram 31w2d (92r6r-11q2g) Weight Estimate: based on (BPD,HC,AC,FL) Hadlock Weight: 1743 gm (3913-9626) Hadlo : 3lbs, 13oz Normal: 1707 gm (6501-7511) Brenn Wt% 52% for 31.4 wks Cervical L ength: 2.3 cm Heart Rate: 145 bpm MATERNAL ANATOMY Ovaries LxHxW (cm) Right 1.8 x 1.2 x 1.6 Vol: 1.8cc Left 2.7 x 1.2 x 1.7 Vol: 2.9cc Ovarian Cysts LxHxW (cm) R1: 1.1 x 0.8 x 1.1 Desc: Follicular CLINICAL SUMMARY Type of Gestation: Perez Intrauterine in vertex presentation. size is appropriate for gestational age. growth: [facility] NAME: ROSELIA YOUNGER Radiology Department PHYS: GRACE - Sheri Wilkinson MD [address] : 2000 AGE: 20 SEX: [place], [place] [address] LOC:VONDA PHONE #: [phone] EXAM DATE: 05/15/2020 STATUS: REG CLI FAX #: [phone] RAD NO: Page 1 Signed Report (CONTINUED) Patient Name: ROSELIA YOUNGER Unit No: [id number] EXAMS: CPT CODE: [id number] [place] [address] (Continued) Consistent with normal growth motion and organs seen: heart motion seen body and limb movements seen Placental location: Anterior left Placental maturity : Grade 2 There is no evidence of placenta previa. Amniotic fluid volume is normal. Uterus and adnexa: No significant abnormality is seen. Cervix length is 2.3 cm. Thank you for allowingus to participate in the care of this patient. Nathan Francois M.D. Electronic Signature 05/15/2020 08:28am at 0828 Reported and signed by: Nathan Francois MD CC: Sheri Wilkinson MD Technologist: Alia Rios RDMS Probe: Trnscrbd D/ (827) [email or web address] Orig Print D/T: S: 05/15/2020 (827) [facility] Rad[facility] Department PHYS: [facility] - Sheri Wilkinson MD [address] : 2000 AGE: 20 SEX: F [place] [address] LOC: RadhaRAD PHONE #: [phone] EXAM DATE: 05/15/2020 STATUS: REG CLI FAX #: [phone] RAD NO: Page 2 Signed Report Patient Name: ROSELIA YOUNGER Unit No: [id number] EXAMS: CPT CODE: [id number] [place] [address] (Continued) [facility] Radiology Department PHYS:[facility]. Sheri Wilkinson MD [address] : 2000 AGE: 20 SEX: F [place] [address] LOC: RadhaRAD PHONE #: [phone] EXAM DATE: 05/15/2020 STATUS: REG CLI FAX #: [phone] RAD NO: Page 3 Signed Report- US FLW [id number] 08:28:00 Patient Name: ROSELIA YOUNGER Unit No: [id number] Report Has Been Amended EXAMS: CPT CODE: [id number] [place] [address] Addendum - 05/15/2020 SIGNED 05/15/2020 ADDENDUM: [id number] US/USPREGFU [facility] [address] [place], [place] [address] OBSTETRICAL ULTRASOUND REPORT Pat. Name: ROSELIA YOUNGER Pat. No: [id number] Study Date: 05/15/2020 7:38am , Age: 02 2000, 20 Pregnancies: 1, Para 0 LMP: Unknown GA by 1st: 31w3d GA by US: 31w2d GA Selected: 31w3d (From First S) FABIOLA: 07/14/2020 Referring MD: SHERI WILKINSON Laborer [employer]: Alia Rios RDMS CPT4: USPREGFU Admitting MD: SHERI WILKINSON Hist/Ind: SCAN 2 SIZE LESS THAN DATES MEASUREMENTS AGE GROWTH EVALUATION Measurement GA Range Srce %for GA Ratios ----- ---- ------- BPD 8.0 cm 32w3d (78x8d-17a3q) Hadl BPD 66% FL/BPD 0.74 (0.71 - 0.87) HC 29.6 cm 32w2d (05w3y-37o8r) Hadl HC 63% FL/AC 0.22 (0.20 - 0.24) APD 8.8 cm APD HC/AC 1.09 (0.96 - 1.15) TAD 8.5 cm TAD CI 0.80 (0.70 - 0.86) AC 27.2 cm 31w2d (51z1c-78t7v) Hadl AC 48% FL 5.9 cm 30w3d (75k4x-43j6o) Hadl FL 35% HL 5.0 cm 29w2d (05g5i-09j4n) Stef LORA 14% GA for sonogram 31w2d (38p0k-17i4w) Weight Estimate: based on (BPD,HC,AC,FL) Hadlock Weight: 1743 gm (0269-0196) Hadlo : 3lbs, 13oz Normal: 1707 gm (4664-7998) Brenn Wt% 52% for 31.4 wks Cervical Length: 2.3 cm Heart Rate: 145 bpm Amniotic Fluid Index: 14.5cm (08.7- 24.0) Q1: 5.3cm Q2: 2.8cm Q3: 2.6cm Q4: 3.8cm MATERNAL ANATOMY Ovaries LxHxW (cm) Right 1.8 x 1.2 x 1.6 Vol: 1.8cc Left 2.7 x 1.2 x 1.7 Vol: 2.9cc Ovarian Cysts LxHxW (cm) R1: 1.1 x 0.8 x 1.1 Desc: Follicular [facility] NAME: ROSELIA YOUNGER Radiology Department PHYS: GRACE - Sheri Wilkinson [id number] Ana Lilia : 2000 AGE: 20 SEX: F [place], [place] [address] LOC: VONDA PHONE #: [phone] EXAM DATE: 05/15/2020 STATUS: GAYLE SANTANAI FAX #: [phone] RAD NO: Page 1 Signed Report (CONTINUED) Patient Name: ROSELIA YOUNGER Unit No: [id number] Report Has Been Amended EXAMS: [place]: [id number] [place] [address] (Continued) CLINICAL SUMMARY Type of Gestation: Perez Intrauterine in vertex presentation. sizeis appropriate for gestational age. growth: Consistent with [...] signed by: Nathan Francois MD Transcribed: 05/15/2020 (0828) [id number] Report [facility] [address] [place], [place] [address] OBSTETRICAL ULTRASOUND REPORT Pat. Name: ROSELIA YOUNGER Pat. No: [id number] Study Date: 05/15/2020 7:38am , Age: 02 2000, 20 Pregnancies: 1, Para 0 LMP: Unknown GA by 1st: 31w3d GA by US: 31w2d GA Selected: 31w3d (From First S) FABIOLA: 07/14/2020 Referring MD: SHERI WILKINSON [employer]: Alia Rios RDMS CPT4: USPREGFU [facility] NAME: ROSELIA YOUNGER Radiology Department PHYS: [email or web address] - Sheri Wilkinson MD [address] : 2000 AGE: 20 SEX: F [place], [place] [address] LOC: F.RAD PHONE #: [phone] EXAM DATE: 05/15/2020 STATUS: REG CLI FAX #: [phone] RAD NO: Page 2 Signed Report (CON TINUED) Patient Name: ROSELIA YOUNGER Unit No: [id number] Report Has Been Amended EXAMS: CPT CODE: [id number] [place] [address] (Continued) Admitting MD: SHERI WILKINSON Hist/Ind: SCAN 2 SIZE LESS THAN DATES MEASUREMENTSFETAL AGE GROWTH EVALUATION Measurement GA Range Srce %for GA Ratios ----- ---- ------- BPD 8.0 cm 32w3d (46q0m-40s6q) Hadl BPD 66% FL/BPD 0.74(0.71 - 0.87) HC 29.6 cm 32w2d (29f5k-39a6p) Hadl HC 63% FL/AC 0.22 (0.20 - 0.24) APD 8.8 cm APD HC/AC 1.09 (0.96 - 1.15) TAD 8.5 cm TAD CI 0.80 (0.70 - 0.86) AC 27.2 cm 31w2d (28w2d- 34w2d) Hadl AC 48%FL 5.9 cm 30w3d (05a3b-05v8e) Hadl FL 35% HL 5.0 cm 29w2d (19z4o-12w4a) Stef HL 14% GA for sonogram 31w2d (90b2b-88m0s) Weight Estimate: based on (BPD,HC,AC,FL) Hadlock Weight: 1743 gm (8672-0272) Hadlo : 3lbs, 13oz Normal: 1707 gm (3791-6463) Brenn Wt% 52% for 31.4 wks Cervical Length: 2.3 cm Heart Rate: 145 bpm MATERNAL ANATOMY Ovaries LxHxW (cm)Right 1.8 x 1.2 x 1.6 Vol: 1.8cc Left 2.7 x 1.2 x 1.7 Vol: 2.9cc Ovarian Cysts LxHxW (cm) R1: 1.1 x 0.8 x 1.1 Desc: Follicular ---- CLINICAL SUMMARY Type of Gestation: Perez Intrauterine [...] in the care of this patient. [facility] NAME: ROSELIA YONUGER Radiology Department PHYS: MARIELLE.Renetta - Sheri Wilkinson MD [address] : 2000 AGE: 20 SEX: F [place], [place] [address] LOC: RadhaRAD PHONE #: [phone] EXAM DATE: 05/15/2020 STATUS: REG CLI FAX #: [phone] RAD NO: Page 3 Signed Report (CONTINUED) Patient Name: ROSELIA YOUNGER Unit No: [id number] Report Has Been Amended EXAMS:CPT CODE: [id number] [place] FLW UP 09062 (Continued) Nathan Francois M.D. Electronic Signature 05/15/2020 08:28am at 0828 Reported and signed by: Nathan Francois MD CC: Sheri Wilkinson MD Technologist: Alia Rios RDMS Probe: Trnscrbd D/ (827) [email or web address] Orig Print D/T: S: 05/15/2020 (827) [facility] Rad[facility] Department PHYS: [facility] Sheri Wilkinson MD [address] : 2000 AGE: 20 SEX: F [place] [address] LOC: RadhaRAD PHONE #: [phone] EXAM DATE: 05/15/2020 STATUS: REG CLI FAX #: [phone] RAD NO: Page 4 Signed Report Patient Name: ROSELIA YOUNGER Unit No: [id number] Report Has Been Amended EXAMS: CPT CODE: [id number] US FLW UP 55297 (Continued) [facility] Radiology Department PHYS: [facility]. Sheri Wilkinson MD [address] : 2000 AGE: 20 SEX: F [place] [address] LOC: RadhaRAD PHONE #: [phone] EXAM DATE: STATUS: REG CLI FAX #: [phone] RAD NO: Page 5 Signed Report- US PREG AFTER [id number] 08:48:00 Patient Name: ROSELIA YOUNGER Unit No: [id number] EXAMS: CPT CODE: [id number] US PREG AFTER TRI [address] [facility] [address] [place], [place] [address] OBSTETRICAL ULTRASOUND REPORT Pat. Name: ROSELIA YOUNGER Pat. No: [id number] Study Date: 02/22/2020 7:18am , Age: 02 2000, 20 Pregnancies: 1, Para 0 LMP: Unknown GA by US: 19w3d GA Selected: 19w4d (From Known E) FABIOLA: 07/14/2020 Referring MD: SHERI WILKINSON [employer]: Alia Rios [facility] CPT4: [id number] Admitting MD: SHERI WILKINSON Hist/Ind: SCAN 1 ANATOMY MEASUREMENTS AGE GROWTH EVALUATION Measurement GA Range Srce %for GA Ratios ----- BPD 4.5 cm 19w4d (08d5l-92l2i) Hadl BPD 49% FL/BPD 0.71 HC 16.7 dc41x8u (17w5d- 20w6d) Hadl HC 42% FL/AC 0.23 APD 4.3 cm APD HC/AC 1.22 (1.06 - 1.25) TAD 4.4 cm TAD CI 0.86 (0.70 - 0.86) AC 13.7 cm 18w5d (50d4h-68p7f) Hadl AC 32% FL 3.2 cm 19w4d (87q0w-22e5j) Hadl FL50% HL 2.9 cm 19w3d (62z2p-30e0u) Stef HL 48% GA for sonogram 19w3d (44w9l-96k4w) Weight Estimate: based on (BPD,HC,AC,FL) Hadlock Weight: [...] Umbilical cord insertion in fetus seen [facility] NAME: ROSELIA YOUNGER Radiology Department PHYS: Sheri Waddell MD [address] : 2000 AGE: 20 SEX: [place] [address] LOC: RadhaRAD PHONE #: [phone] EXAM DATE: 02/22/2020 STATUS: REG CLI FAX #: [phone] RAD NO: Page 1 Signed Report (CONTINUED) Patient Name: ROSELIA YOUNGER Unit No: [id number] EXAMS: CPT CODE: [id number] US PREG AFTER 1STTRI 08406 (Continued) stomach, Renal Fossa, Bladder and Spine seen Three vessel umbilical cord noted RVOT not well seen abnormalities observed: None seen at this exam Placental location: Anterior Left lateral Placental maturity : Grade 1 There is no evidence of placenta previa. Amniotic fluid volume is normal. Uterus and adnexa: No significant abnormality is seen. Jaci De La O M.D. --- Electronic Signature 02/22/2020 08:48am Electronically Signed by Jcai Neal 02/22/2020 at 0848 Reported and signed by: Jaci De La O MD CC: Sheri Wilkinson MD Technologist:Alia Rios RDMS Probe: Trnscrbd D/ (0848) t.NANCYR.NMG Orig Print D/T: S: 02/22/2020 (0848) [facility] Radiology Department PHYS: MARIELLE.Renetta - Sheri Wilkinson MD [address] : 2000 AGE: 20 SEX: F [place] [address] LOC: Cesar.RAD PHONE #: [phone] EXAM DATE: 02/22/2020 STATUS: REG CLI FAX #: [phone] RAD NO: Page 2 Signed Report Patient Name: ROSELIA YOUNGER Unit No: [id number] EXAMS: CPT CODE: [id number] US PREGAFTER 1ST TRI 69257 (Continued) [facility] Radiology Department PHYS: GRACE Sheri Wilkinson MD [address] : 2000 AGE: 20 SEX: F [place], [place] [address]HSQQ NO: [id number] LOC: Cesar.RAD PHONE #: [phone] EXAM DATE: 02/22/2020 STATUS: REG CLI FAX #: RAD NO: Page 3 Signed Report
[2022-08-31] MEDS ORDERED: BUPIVACAINE 0.5% PF 10 ML VIAL ONE (16:51)
--- NOTE | 2022-08-31 17:29 | EDPHYS ---
Physician Documentation [facility] Name: Lili Younger Age: 22 yrs Sex: Female : 2000 Arrival Date: 08/31/2022 Time: 16:25 Bed 10 Private MD: ED Physician Juan Daniel Londono HPI: 08/31 17:20 This 22 yrs old Female presents to ER via Ambulatory with complaints of Finger jmm Nail Injury. 17:20 The patient or guardian reports injury, pain. Onset: The symptoms/episode jmm began/occurred acutely, just prior to arrival. Modifying factors: The symptoms are alleviated by nothing, the symptoms are aggravated by nothing. patient states she lifted her right 5th nail while lifting a box. Denies other injury. Unsure on tetanus immunization . Historical: - Allergies: 16:34 No Known Allergies; hb - Home Meds: 16:34 None [Active]; hb - PMHx: 16:34 None; hb - PSHx: 16:34 None; hb - Immunization history:: Adult Immunizations up to date. - Social history:: Smoking status: Patient denies any tobacco usage or history of. ROS: 17:20 Constitutional: Negative for fever, chills, and weight loss, Cardiovascular: Negative jmm for chest pain, palpitations, and edema, Respiratory: Negative for shortness of breath, cough, wheezing, and pleuritic chest pain. 17:20 MS/extremity: Positive for injury or acute deformity. 17:20 All other systems are negative. Exam: 17:20 Constitutional: This is a well developed, well nourished patient who is awake, alert, jmm and in no acute distress. Head/Face: atraumatic. Eyes: EOMI, no conjunctival erythema appreciated ENT: Moist Mucus Membranes Neck: Trachea midline, Supple Chest/axilla: Normal chest wall appearance and motion. Cardiovascular: Regular rate and rhythm. No edema appreciated Respiratory: Normal respirations, no respiratory distress appreciated Abdomen/GI: Non distended Back: Normal ROM Skin: General appearance color normal 17:20 Musculoskeletal/extremity: partial nail avulsion noted to the right 5th fingernail. 17:20 Skin: Appearance: Color: normal in color. 17:20 Neuro: Orientation: is normal, Mentation: is normal, Memory: is normal. 17:20 Psych: Behavior/mood is pleasant, cooperative. Vital Signs: 16:33 Pulse 92; Resp 18; Temp 98.3; Pulse Ox 100% ; Weight 45.36 kg; Height 5 ft. 3 in. hb (160.02 cm); Pain 10/10; 16:40 Pulse 90; Resp 18; Pulse Ox 99% on R/A; eh3 16:33 Body Mass Index 17.71 (45.36 kg, 160.02 cm) hb Procedures: 17:24 Performed Nail removal. Right fifth finger was anesthetized with 0.5% Marcaine. 2 mL jmm were injected base of the right fifth finger. Good anesthesia was achieved. Hemostats were used to remove the acrylic nail. There is a partial avulsion of the nail. Finger cleaned with Betadine and normal saline. Pressure dressing using nonadherent gauze and Coban applied. Patient tolerated the procedure well. MDM: 16:36 Patient medically screened. [facility] 17:24 Data reviewed: vital signs, nurses notes. Counseling: I had a detailed discussion with ovidio the patient and/or guardian regarding: the historical points, exam findings, and any diagnostic results supporting the discharge/admit diagnosis, the need for outpatient follow up, to return to the emergency department if symptoms worsen or persist or if there are any questions or concerns that arise at home. 08/31 17:19 Order name: Wound Care: nonadherant gauze, pressure wrap, coban; Complete Time: 17:21 [facility] Administered Medications: 17:15 Drug: Marcaine (bupivacaine) (0.5 %) 10 ml {Note: administered by PA. Thompson} 3 Volume: 10 ml; Route: Infiltration; 17:47 Follow up: Response: Pain is decreased eh3 Disposition: 18:54 Co-signature as Attending Physician, Juan Daniel Londono MD. rn Disposition Summary: 08/31/22 17:28 Discharge Ordered Location: Home [facility] Condition: Stable [facility] Diagnosis - Partial Nail Avulsion - Right 5th Fingernail [facility] Followup: [facility] - With: Van Wagoner MD - When: As needed - Reason: Recheck today's complaints, Continuance of care, Re-evaluation by your physician Discharge Instructions: - Discharge Summary Sheet [facility] - Nail Avulsion [facility] Forms: - Medication Reconciliation Form [facility] - Thank You Letter jmm - Antibiotic Education jmm - Prescription Opioid Use [facility] Prescriptions: - Cephalexin 500 mg Oral Capsule - take 1 capsule by ORAL route every 6 hours for 5 days; 20 capsule; Refills: 0, jmm Product Selection Permitted Signatures: Jakub Barrientos PA PA jmm Nieto, Roman, MD MD rn Yas Beltrán RN RN Chayito Corral RN RN eh3
--- NOTE | 2022-08-31 17:29 | ER ---
Nurse's Notes [facility] Name: Lili Younger Age: 22 yrs Sex: Female : 2000 Arrival Date: 08/31/2022 Time: 16:25 Bed 10 Private MD: Diagnosis: Partial Nail Avulsion - Right 5th Fingernail Presentation: 08/31 16:33 Chief complaint: Artificial nail bent back while carrying item, reports right 5th hb finger bleeding and pain 08/18. Coronavirus screen: At this time, the client does not indicate any symptoms associated with coronavirus-19. Ebola Screen: No symptoms or risks identified at this time. Initial Sepsis Screen: Does the patient meet any 2 criteria? No. Patient's initial sepsis screen is negative. Does the patient have a suspected source of infection? No. Patient's initial sepsis screen is negative. Risk Assessment: Do you want to hurt yourself or someone else? Patient reports no desire to harm self or others. Onset of symptoms was August 31, 2022. 16:33 Method Of Arrival: Ambulatory hb 16:33 Acuity: BENJY 4 hb Historical: - Allergies: 16:34 No Known Allergies; hb - Home Meds: 16:34 None [Active]; hb - PMHx: 16:34 None; hb - PSHx: 16:34 None; hb - Immunization history:: Adult Immunizations up to date. - Social history:: Smoking status: Patient denies any tobacco usage or history of. Screenin:40 Abuse screen: Denies threats or abuse. Denies injuries from another. Nutritional eh3 screening: No deficits noted. Tuberculosis screening: No symptoms or risk factors identified. Fall Risk None identified. Assessment: 16:40 General: Appears in no apparent distress. uncomfortable, Behavior is cooperative, flat. eh3 Pain: Complains of pain in right little fingernail Pain does not radiate. Pain currently is 10 out of 10 on a pain scale. Neuro: Level of Consciousness is awake, alert, obeys commands, Oriented to person, place, time, situation. Cardiovascular: Capillary refill < 3 seconds Patient's skin is warm and dry. Respiratory: Airway is patent Respiratory effort is even, unlabored, Respiratory pattern is regular, symmetrical. GI: No signs and/or symptoms were reported involving the gastrointestinal system. : No signs and/or symptoms were reported regarding the genitourinary system. EENT: No deficits noted. Derm: No deficits noted. Musculoskeletal: Circulation, motion, and sensation intact. Range of motion: intact in all extremities. Vital Signs: 16:33 Pulse 92; Resp 18; Temp 98.3; Pulse Ox 100% ; Weight 45.36 kg; Height 5 ft. 3 in. hb (160.02 cm); Pain 10/10; 16:40 Pulse 90; Resp 18; Pulse Ox 99% on R/A; eh3 16:33 Body Mass Index 17.71 (45.36 kg, 160.02 cm) hb ED Course: 16:25 Patient arrived in ED. mr 16:26 Jakub Barrientos PA is PHCP. [facility] 16:26 Juan Daniel Londono MD is Attending Physician. [facility] 16:34 Triage completed. hb 16:34 Arm band placed on. hb 16:37 Chayito Corral, TEODORO is Primary Nurse. eh3 16:40 Patient has correct armband on for positive identification. Bed in low position. Call eh3 light in reach. Side rails up X2. Pulse ox on. Door closed. Noise minimized. 17:26 No provider procedures requiring assistance completed. Patient did not have IV access eh3 during this emergency room visit. Dressings: Kerlix X 1; right little fingernail non-adherent dressing x 1 right little fingernail. 17:27 Van Wagoner MD is Referral Physician. [facility] Administered Medications: 17:15 Drug: Marcaine (bupivacaine) (0.5 %) 10 ml {Note: administered by NIKITA Mackay.} eh3 Volume: 10 ml; Route: Infiltration; 17:47 Follow up: Response: Pain is decreased eh3 Medication: 17:28 VIS not applicable for this client. eh3 Outcome: 17:26 Discharged to home ambulatory, with friend. eh3 17:26 Condition: stable 17:26 Discharge instructions given to patient, Instructed on discharge instructions, follow up and referral plans. wound care, Demonstrated understanding of instructions, follow-up care, wound care. 17:28 Discharge ordered by . [facility] 17:47 Patient left the ED. eh3 17:47 Prescriptions given X Pt left before final discharge, did not sign paperwork or take eh3 prescription Signatures: Jakub Barrientos PA PA jmm Rivera Carol mr BeltránYas RN RN Chayito Corral RN RN eh3 Corrections: (The following items were deleted from the chart) 17:51 17:26 Discharge instructions given to patient, Instructed on discharge instructions, eh3 follow up and referral plans. wound care, Demonstrated understanding of instructions, follow-up care, wound care, eh3
[2022-08-31 18:02] VITALS: TEMP 98.3
[2022-08-31 18:03] VITALS: O2SAT 99
== END 2022-08-31 17:47 | disposition home or self-care (01) ==
LOC: ER 16:22
PROC: 0HBQXZZ Excision of Finger Nail, External Approach (ICD-10-PCS; principal; 2022-08-31)
DX: S61.306A Unspecified open wound of right little finger with damage to nail, initial encounter (principal)
CPT/HCPCS: 99283

== ENCOUNTER 2025-02-03 07:54 | Emergency (ER) | payer BC, OTHER ==
--- OUTSIDE RECORDS SUMMARY | 2025-02-03 08:00 | XMS REPORT | Continuity of Care Document ---
Author Name Unknown Address [address] [facility]. [address] [place] [address] [facility] Address [address] [facility] [place] [address] Care Team Providers Care Automatic Engraver Name Role Phone PCP, PATIENT DOES NOT HAVE A Primary Care Physic debora Unavailable Sheri Whiteside Attending Clinician Unavailable PAUL LOONEY Attending Clinician Unavailable Paul Looney DNP Attending Clinician [phone] Nurse, [facility] Attending Clinician Unavailable FERN MCLAIN Attending Clinician Unavailab LAURA Benson Attending Clinician Unavailable CRISPIN CHANDLER Attending Clinician UnaDEBBIE Jeter Attending Clinician Unavailabl e [email or web address]_S Attending Clinician Unavaila ISIDRO Meyer Attending Clinician Unavailable Geraldine SAEED, Crispin Banuelos Attending Clinician [phone] CLEMENT MARTINEZ Attending Clinician Unavailable Clement Martinez MD Attending Clinician [phone] Doctor Unassigned, [place] Attending Clinician U Coral Kelly Attending Clinician [phone] Sheri Whiteside Admitting Clinician Unavailable Physician, No Primary or Family Admitting Clinic debora Unavailable William Perdomo Admitting Clinician Unavailable KNOW, DOES_NOT Admitting Clinician Unavailable [email or web address]_S Admitting Clinician Unavaila geovanny Payers Payer Name Policy Type Policy Number Effective Date Expirati on Date Source [facility] [id number] 2018 00:00:00 [facility] 2 [id number] 2023 00:00:00 [facility] [id number] 2021 00:00:00 Problems Condition Name Condition Details Condition Category Status Onset Date Resolution Date Last Treatment Date Treating Clinician Comments Source Gonorrhea Gonorrhea Disease Active 12-09 00:00: 00 [facility] Chlamydia infection Chlamydia infection Disease Active 12-09 00:00: 00 [facility] Underweigh t (BMI < 18.5) Underweigh t (BMI < 18.5) Disease Active 12-05 00:00: 00 [facility] No known active problems No known active problems Disease Marylou Seybold - Externa l Allergies, Adverse Reactions, Alerts Allergy Name Allergy Type Status Severity Reaction(s) Onset Date Inactive Date Treating Clinician Comments Source No Known Allergie s DA Active U 07-12 00:00: 00 [facility] No Known Allergie s DA Active U 07-12 00:00: [address] [facility] No Known Allergie s DA Active U 6 00:00: 00 [facility] No Known Allergie s DA Active U 617 00:00: 00 [facility] No Known Allergie s DA Active U 3-19 00:00: 00 [facility] No Known Allergie s DA Active U 3-19 00:00: 00 [facility] NO KNOWN ALLERGIE S Drug Class Active [facility] Social History Social Habit Start Date Stop Date Quantity Comments Source Exposure to SARS-CoV-2 (event) Not sure Marylou varma [facility] Alcoholic beverage intake 2024-12-09 00:00:00 2024-12-09 00:00:00 Current drinker of alcohol (finding) [facility] Tobacco use and exposure 2024-12-09 00:00:00 2024-12-09 00:00:00 Smokeless tobacco non-user [facility] History of Social function 2024-12-05 00:00:00 2024-12-05 00:00:00 [facility] Sex Assigned At 2002 00:00:00 2000 00:00:00 Marylou Quiles - External Smoking Status Start Date Stop Date Source Never smoked tobacco [facility] Medications Ordered Medication Name Filled Medication Name Start Date Stop Date Current Medication? Ordering Clinician Indication Dosage Frequency Signature (SIG) Comments Components Source cefTRIAXone (ROCEPHIN) injection 500 mg 12-09 14:18: 00 12-09 14:42 :00 No [id number] 500mg 500 mg, Intramuscu lar, ONCE, 1 dose, On Thu12/09/24 at 0830, NINI, Reason for Anti-Infec tive: Documented Infection, Documented Infection Site: Pelvic, Duration of Therapy: Once (ED) [facility] fluconazole 150 mg tablet 12-09 00:00: 00 12-10 05:59 :00 Yes [id number] 150mg Take 1 tablet by mouth once now for 1 dose. [facility] doxycycline monohydrate 100 mg capsule 2025-0 1-30 00:00: 00 Yes 100mg Take 1 capsule by mouth in the morning and 1 capsule in the evening. [facility] REXULTI 0.5 mg Tab 12-01 00:00: 00 Yes [facility] hydrOXYzine 25 mg tablet - 00:00: 00 Yes [facility] SERTraline 50 mg tablet 05-30 00:00: 00 Yes 50mg Take 1 tablet by mouth. [facility] Sumatriptan Succinate 25 MG oral Tablet 11-27 00:00: 00 Yes [id number] Take 1 tab at the onset of headaches. May repeat dose x1 in 2 hours for max of 2 doses in 24 hours Marylou archuleta ACETAMINOPH EN-CAFF-BUT ALBITAL 50-325-40 MG oral Tablet 11-27 00:00: 00 Yes [id number] 1{tbl} Q4H Take 1 tablet by mouth every 4 hours as needed for pain Marylou archuleta Escitalopra m Oxalate 20 MG oral Tablet 2021-11 00:00: 00 Yes [id number] 20mg Take 1 tablet (20 mg total) by mouth daily Marylou archuleta Escitalopra m Oxalate 10 MG oral Tablet 2020-11 00:00: 00 Yes [id number] 10mg Take 1 tablet (10 mg total) by mouth daily Marylou Quiles hydrOXYzine Pamoate 50 MG oral Capsule 2020-11 00:00: 00 Yes Marylou archuleta Escitalopra m Oxalate 10 MG oral Tablet 2020-11 00:00: 00 08-29 00:00 :00 No Marylou Quiles Ferrous Sulfate 325 (65 Fe) MG oral Tablet 03-15 00:00: 00 11-27 00:00 :00 No [id number] 325mg Take 1 tablet (325 mg total) by mouth daily (with breakfast) Marylou archuleta iopamidol (ISOVUE 300-500 mL) injection 100 mL 03-12 09:15: 00 03-12 09:15 :00 No 100mL 100 mL, Intravenou s, ONCE, 1 dose, 03/12/21 at 0415, Routine [facility] acetaminoph en (TYLENOL) tablet 650 mg 03-12 03:15: 00 03-12 02:08 :00 No 650mg 650 mg, Oral, ONCE, 1 dose, 03/11/21 at 2215, [facility] cefTRIAXone (ROCEPHIN) 1,000 mg in NaCl 0.9% (NS) 50 mL MINI-BAG 03-12 03:00: 00 03-12 02:36 :00 No 1000mg 1,000 mg, IV Piggyback, ONCE, 1 dose, Thu03/11/21 at 2200, 50 mL
Reas on for Anti-Infec tive: Documented Infection< br>Documen suzi Infection Site: Urine
D uration of Therapy: Other (see Comments) [facility] ondansetron (ZOFRAN (PF)) injection 4 mg 03-12 02:00: 00 03-12 00:58 :00 No 4mg 4 mg, Slow IV Push, ONCE, 1 dose, Thu03/11/21 at 2100, [facility] FENTanyl PF (SUBLIMAZE (PF)) injection 50 mcg 03-12 02:00: 00 03-12 00:59 :00 No 50ug 50 mcg, Slow IV Push, ONCE, 1 dose, Thu03/11/21 at 2100, Routine [facility] NaCl 0.9% (NS) bolus infusion 1,000 mL 03-12 01:00: 00 03-12 02:05 :00 No 1000mL at 999 mL/hr, 1,000 mL, IV Infusion, ONCE, 1 dose, Thu03/11/21 at 2000, [facility] No known medications No Un sammie [facility] No known medications No Un sammie [facility] Immunizations Ordered Immunization Name Filled Immunization Name Date Status Comments Source HPV (Human Papillomavirus) 2020-09-21 00:00:00 Shaina Wylieold - External HPV (Human Papillomavirus) 2020-09-21 00:00:00 Completed Marylou ybold HPV (Human Papillomavirus) 2020-09-21 00:00:00 Completed Marylou Isbellybold - External Meningococcal Vaccine- Conjugate(Menactra) 2020-06-27 00:00:00 Completed Marylou Seybold - External Meningococcal Vaccine- Conjugate(Menactra) 2020-06-27 00:00:00 Completed Marylou Seybold Meningococcal Vaccine- Conjugate(Menactra) 2020-06-27 00:00:00 Completed Marylou Quiles - External Meningococcal Polysaccharide (groups A, C, Y and W-135) conjugate vaccine (MCV4P) 2020-06-27 00:00:00 Completed HPV (Human Papillomavirus) 2020-06-21 00:00:00 Completed Marylou Wylieold - External HPV (Human Papillomavirus) 2020-06-21 00:00:00 Completed Marylou Quiles HPV (Human Papillomavirus) 2020-06-21 00:00:00 Completed Marylou Wylieold - External HPV (Human Papillomavirus) 2019-09-15 00:00:00 Completed Marylou Seybold - External HPV (Human Papillomavirus) 2019-09-15 00:00:00 Completed Marylou Wyliepolo HPV (Human Papillomavirus) 2019-09-15 00:00:00 Completed Marylou Quiles - External Tdap- (Boostrix, Adacel) 2013-06-03 00:00:00 Completed Marylou Isbellybold - External Varicella Vaccine 2013-06-03 00:00:00 Completed Marylou Quiles - External HEPATITIS A- PEDI/ADOL 2013-06-03 00:00:00 Completed Marylou Isbellybold - External Meningococcal Vaccine- Conjugate(Menactra) 2013-06-03 00:00:00 Completed Marylou Isbellybold - External Tdap- (Boostrix, Adacel) 2013-06-03 00:00:00 Completed Marylou Seybold - External Varicella Vaccine 2013-06-03 00:00:00 Completed Marylou Seybold - External HEPATITIS A- PEDI/ADOL 2013-06-03 00:00:00 Completed Marylou Isbellybold Meningococcal Vaccine- Conjugate(Menactra) 2013-06-03 00:00:00 Completed Marylou Quiles Tdap- (Boostrix, Adacel) 2013-06-03 00:00:00 Completed Marylou Quiles Varicella Vaccine 2013-06-03 00:00:00 Completed Marylou Quiles HEPATITIS A- PEDI/ADOL 2013-06-03 00:00:00 Completed Marylou Quiels - External Meningococcal Vaccine- Conjugate(Menactra) 2013-06-03 00:00:00 Completed Marylou Quiles - External HEPATITIS A 2013-06-03 00:00:00 Completed Meningococcal Polysaccharide (groups A, C, Y and W-135) conjugate vaccine (MCV4P) 2013-06-03 00:00:00 Completed TDAP 2013-06-03 00:00:00 Completed Varicella (varivax)(chicken pox) 2013-06-03 00:00:00 Completed Varicella Vaccine 2007-03-01 00:00:00 Completed Marylou Quiles - External DTaP Unspecified 2007-03-01 00:00:00 Completed Marylou Quiles - External Pneumococcal Vaccine, Conjugate 7 2007-03-01 00:00:00 Completed Marylou Quiles - External IPV- Inactivated Polio Vaccine 2007-03-01 00:00:00 Completed Marylou Quiles - External Varicella Vaccine 2007-03-01 00:00:00 Completed Marylou Quiles - External DTaP Unspecified 2007-03-01 00:00:00 Completed Marylou Quiles Pneumococcal Vaccine, Conjugate 7 2007-03-01 00:00:00 Completed Marylou Quiles IPV- Inactivated Polio Vaccine 2007-03-01 00:00:00 Completed aMrylou Quiles Varicella Vaccine 2007-03-01 00:00:00 Completed Marylou Quiles DTaP Unspecified 2007-03-01 00:00:00 Completed Marylou Wylieold - External Pneumococcal Vaccine, Conjugate 7 2007-03-01 00:00:00 Completed Marylou Quiles - External IPV- Inactivated Polio Vaccine 2007-03-01 00:00:00 Completed Marylou Quiles - External DTaP, Unspecified Formulation 2007-03-01 00:00:00 Completed IPV 2007-03-01 00:00:00 Completed Pneumococcal 7 Conjugate, PCV7 (Prevnar7) 2007-03-01 00:00:00 Completed Varicella (varivax)(chicken pox) 2007-03-01 00:00:00 Completed Varicella Vaccine 2004-01-24 00:00:00 Completed Marylou Inessaold - External Hepatitis B, Adolescent Or Pediatric 2004-01-24 00:00:00 Completed Marylou Seybold - External MMR- Measles, Mumps, Rubella 2004-01-24 00:00:00 Completed Marylou Isbellybold - External IPV- Inactivated Polio Vaccine 2004-01-24 00:00:00 Completed Marylou Seybold - External Varicella Vaccine 2004-01-24 00:00:00 Completed Marylou Seybold - External Hepatitis B, Adolescent Or Pediatric 2004-01-24 00:00:00 Completed Marylou Seybold MMR- Measles, Mumps, Rubella 2004-01-24 00:00:00 Completed Marylou Isbellybold IPV- Inactivated Polio Vaccine 2004-01-24 00:00:00 Completed Marylou Seybold Varicella Vaccine 2004-01-24 00:00:00 Completed Marylou Isbellybold Hepatitis B, Adolescent Or Pediatric 2004-01-24 00:00:00 Completed Marylou Seybold - External MMR- Measles, Mumps, Rubella 2004-01-24 00:00:00 Completed Marylou Isbellybold - External IPV- Inactivated Polio Vaccine 2004-01-24 00:00:00 Completed Marylou Wylieold - External Hep B, Adol or Pedi Dosage 2004-01-24 00:00:00 Completed IPV 2004-01-24 00:00:00 Completed MMR 2004-01-24 00:00:00 Completed Varicella (varivax)(chicken pox) 2004-01-24 00:00:00 Completed DTaP Unspecified 2003-12-20 00:00:00 Completed Marylou Isbellybold - External Hib (HbOC) 2003-12-20 00:00:00 Completed Marylou Isbellybold - External Pneumococcal Vaccine, Conjugate 7 2003-12-20 00:00:00 Completed Marylou Wylieold - External DTaP Unspecified 2003-12-20 00:00:00 Completed Marylou Isbellybold Hib (HbOC) 2003-12-20 00:00:00 Completed Marylou Isbellybold Pneumococcal Vaccine, Conjugate 7 2003-12-20 00:00:00 Completed Marylou Isbellybold DTaP Unspecified 2003-12-20 00:00:00 Completed Marylou Seybold - External Hib (HbOC) 2003-12-20 00:00:00 Completed Marylou Quiles - External Pneumococcal Vaccine, Conjugate 7 2003-12-20 00:00:00 Completed Marylou Quiles - External DTaP, Unspecified Formulation 2003-12-20 00:00:00 Completed [facility] Hib-HbOC 2003-12-20 00:00:00 Completed Pneumococcal 7 Conjugate, PCV7 (Prevnar7) 2003-12-20 00:00:00 Completed MMR- Measles, Mumps, Rubella 2003-01-03 00:00:00 Completed Marylou Quiles - External MMR- Measles, Mumps, Rubella 2003-01-03 00:00:00 Completed Marylou Quiles MMR- Measles, Mumps, Rubella 2003-01-03 00:00:00 Completed Marylou Quiles - External MMR 2003-01-03 00:00:00 Completed Hepatitis B, Adolescent Or Pediatric 2002 00:00:00 Completed Marylou Quiles - External IPV- Inactivated Polio Vaccine 2002 00:00:00 Completed Mayrlou Quiles - External Hepatitis B, Adolescent Or Pediatric 2002 00:00:00 Completed Marylou Quiles IPV- Inactivated Polio Vaccine 2002 00:00:00 Completed Marylou Quiles Hepatitis B, Adolescent Or Pediatric 2002 00:00:00 Completed Marylou Quiles - External IPV- Inactivated Polio Vaccine 2002 00:00:00 Completed Marylou Quiles - External Hep B, Adol or Pedi Dosage 2002 00:00:00 Completed IPV 2002 00:00:00 Completed DTaP Unspecified 2002 00:00:00 Completed Marylou Quiles - External HIB- Haemophilus Influenzae Type B 2002 00:00:00 Completed Marylou Quiles - External DTaP Unspecified 2002 00:00:00 Completed Marylou Quiles HIB- Haemophilus Influenzae Type B 2002 00:00:00 Completed Marylou Quiles DTaP Unspecified 2002 00:00:00 Completed Marylou Quiles - External HIB- Haemophilus Influenzae Type B 2002 00:00:00 Completed Marylou Quiles - External DTaP, Unspecified Formulation 2002 00:00:00 Completed HIB 4 Dose Schedule 2002 00:00:00 Completed DTaP Unspecified 2002 00:00:00 Completed Marylou Quiles - External Hepatitis B, Adolescent Or Pediatric 2002 00:00:00 Completed Marylou Quiles - External HIB- Haemophilus Influenzae Type B 2002 00:00:00 Completed Marylou Quiles - External IPV- Inactivated Polio Vaccine 2002 00:00:00 Completed Marylou Quiles - External DTaP Unspecified 2002 00:00:00 Completed Marylou Quiles Hepatitis B, Adolescent Or Pediatric 2002 00:00:00 Completed Marylou Quiles HIB- Haemophilus Influenzae Type B 2002 00:00:00 Completed Marylou Quiles IPV- Inactivated Polio Vaccine 2002 00:00:00 Completed Marylou Quiles DTaP Unspecified 2002 00:00:00 Completed Marylou Quiles - External Hepatitis B, Adolescent Or Pediatric 2002 00:00:00 Completed Marylou Quiles - External HIB- Haemophilus Influenzae Type B 2002 00:00:00 Completed Marylou Quiles - External IPV- Inactivated Polio Vaccine 2002 00:00:00 Completed Marylou Quiles - External DTaP, Unspecified Formulation 2002 00:00:00 Completed Hep B, Adol or Pedi Dosage 2002 00:00:00 Completed Heamophilus Influenza B 2002 00:00:00 Completed IPV 2002 00:00:00 Completed DTaP Unspecified 2002 00:00:00 Completed Marylou Quiles - External HIB- Haemophilus Influenzae Type B 2002 00:00:00 Completed Marylou Quiles - External Pneumococcal Vaccine, Conjugate 7 2002 00:00:00 Completed Marylou Quiles - External IPV- Inactivated Polio Vaccine 2002 00:00:00 Completed Marylou Quiles - External DTaP Unspecified 2002 00:00:00 Completed Marylou Quiles HIB- Haemophilus Influenzae Type B 2002 00:00:00 Completed Marylou Quiles Pneumococcal Vaccine, Conjugate 7 2002 00:00:00 Completed Marylou Quiles IPV- Inactivated Polio Vaccine 2002 00:00:00 Completed Marylou Quiles DTaP Unspecified 2002 00:00:00 Completed Marylou Quiles - External HIB- Haemophilus Influenzae Type B 2002 00:00:00 Completed Marylou Quiles - External Pneumococcal Vaccine, Conjugate 7 2002 00:00:00 Completed Marylou Quiles - External IPV- Inactivated Polio Vaccine 2002 00:00:00 Completed Marylou Quiles - External DTaP, Unspecified Formulation 2002 00:00:00 Completed HIB 4 Dose Schedule 2002 00:00:00 Completed IPV 2002 00:00:00 Completed Pneumococcal 7 Conjugate, PCV7 (Prevnar7) 2002 00:00:00 Completed Hepatitis B, Adolescent Or Pediatric 2002 00:00:00 Completed Marylou Quiles - External Hepatitis B, Adolescent Or Pediatric 2002 00:00:00 Completed Marylou Quiles Hepatitis B, Adolescent Or Pediatric 2002 00:00:00 Completed Marylou Quiles - External Hep B, Adol or Pedi Dosage 2002 00:00:00 Completed Vital Signs Vital Name Observation Time Observation Value Comments S ource Systolic blood pressure 2024-12-09 14:42:00 112 mm[Hg] [facility] Diastolic blood pressure 2024-12-09 14:42:00 77 mm[Hg] [facility] Heart rate 2024-12-09 14:40:00 81 /min [facility] Respiratory rate 2024-12-09 14:40:00 18 /min [facility] Body height 2024-12-09 14:40:00 160 cm [facility] Body weight 2024-12-09 14:40:00 46.72 kg [facility] BMI 2024-12-09 14:40:00 18.25 kg/m2 [facility] Systolic blood pressure 2024-12-05 13:46:00 119 mm[Hg] [facility] Diastolic blood pressure 2024-12-05 13:46:00 79 mm[Hg] [facility] Heart rate 2024-12-05 13:46:00 79 [facility] 2024-12-05 13:46:00 18 /min [facility] Body height 2024-12-05 13:46:00 160 cm [facility] 2024-12-05 13:46:00 46.72 kg [facility] BMI 2024-12-05 13:46:00 18.25 kg/m2 [facility] Systolic blood pressure 2022-11-27 20:14:00 100 mm[Hg] Marylou Seybo ld - External Diastolic blood pressure 2022-11-27 20:14:00 76 mm[Hg] Marylou Seybo ld - External Heart rate 2022-11-27 20:14:00 92 /min Kelse y Seybold - External Body temperature 2022-11-27 20:14:00 37.06 Anu Marylou Seybold - External Respiratory rate 2022-11-27 20:14:00 14 /min Marylou Seybold - External Body height 2022-11-27 20:14:00 160 cm Norma ey Seybold - External Body weight 2022-11-27 20:14:00 45.36 kg Norma ey Seybold - External BMI 2022-11-27 20:14:00 17.71 kg/m2 Norma ey Seybold - External Heart rate 2022-10-27 19:11:00 67 /min Kelse y Seybold - External Body temperature 2022-10-27 19:11:00 36.61 Anu Marylou Seybold - External Respiratory rate 2022-10-27 19:11:00 14 /min Marylou Seybold - External Body height 2022-10-27 19:11:00 160 cm Norma ey Seybold - External Body weight 2022-10-27 19:11:00 47.174 kg Norma ey Seybold - External BMI 2022-10-27 19:11:00 18.42 kg/m2 Norma ey Seybold - External Oxygen saturation in Arterial blood by Pulse oximetry 2022-10-27 19:11:00 99 /min Marylou Seybo ld - External Systolic blood pressure 2022-10-27 19:11:00 126 mm[Hg] Marylou Seybo ld - External Diastolic blood pressure 2022-10-27 19:11:00 78 mm[Hg] Amrylou Seybo ld - External Systolic blood pressure 2021-08-29 16:08:00 106 mm[Hg] Marylou Seybo ld Diastolic blood pressure 2021-08-29 16:08:00 70 mm[Hg] Marylou Seybo ld Heart rate 2021-08-29 16:08:00 91 /min Kelse y Seybold Body temperature 2021-08-29 16:08:00 37.06 Anu Marylou Seybold Respiratory rate 2021-08-29 16:08:00 16 /min Marylou Seybold Body height 2021-08-29 16:08:00 160 cm Norma ey Seybold Body weight 2021-08-29 16:08:00 46.72 kg Norma ey Seybold BMI 2021-08-29 16:08:00 18.25 kg/m2 Norma ey Seybold Body mass index (BMI) [Percentile] Per age and sex 2021-08-29 16:08:00 8.06 % Marylou Seybo ld Systolic blood pressure 2021-08-29 16:08:00 106 mm[Hg] Marylou Seybo ld Diastolic blood pressure 2021-08-29 16:08:00 70 mm[Hg] Marylou Seybo ld Heart rate 2021-08-29 16:08:00 91 /min Kelse y Seybold Body temperature 2021-08-29 16:08:00 37.06 Anu Marylou Seybold Respiratory rate 2021-08-29 16:08:00 16 /min Marylou Seybold Body height 2021-08-29 16:08:00 160 cm Norma ey Seybold Body weight 2021-08-29 16:08:00 46.72 kg Norma ey Seybold BMI 2021-08-29 16:08:00 18.25 kg/m2 Norma ey Seybold Body mass index (BMI) [Percentile] Per age and sex 2021-08-29 16:08:00 8.06 % Marylou bains Heart rate 2021-03-12 10:00:00 51 /min [facility] Oxygen saturation in Arterial blood by Pulse oximetry 2021-03-12 10:00:00 96 /min [facility] Systolic blood pressure 2021-03-12 09:30:00 97 mm[Hg] [facility] Diastolic blood pressure 2021-03-12 09:30:00 56 mm[Hg] [facility] Respiratory rate 2021-03-12 09:30:00 17 /min [facility] Body temperature 2021-03-12 08:33:00 36.94 Anu [facility] Systolic blood pressure 2021-03-12 04:11:00 98 mm[Hg] [facility] Diastolic blood pressure 2021-03-12 04:11:00 55 mm[Hg] [facility] Heart rate 2021-03-12 04:11:00 70 /min [facility] Body temperature 2021-03-12 04:11:00 37.72 Anu [facility] Respiratory rate 2021-03-12 04:11:00 16 /min [facility] Oxygen saturation in Arterial blood by Pulse oximetry 2021-03-12 04:11:00 99 /min [facility] Body height 2021-03-12 00:16:00 157.5 cm [facility] Body weight 2021-03-12 00:16:00 45.314 kg [facility] BMI 2021-03-12 00:16:00 18.27 kg/m2 [facility] Procedures Procedure Date / Time Performed Performing Clinician Source GC & CHLAMYDIA AMPLIFIED ASSAY 2024-12-05 13:58:00 Paul Looney [facility] LAB ONLY PAP SMEAR-LIQUID BASED 2024-12-05 13:58:00 Paul Looney [facility] TRICHOMONAS AMPLIFIED ASSAY 2024-12-05 13:58:00 Paul Looney [facility] PAP SMEAR-LIQUID BASED-CP 2024-12-05 13:58:00 Paul Looney [facility] CT ABDOMEN PELVIS W CONTRAST 2021-03-12 08:05:55 Cleemnt Martinez [facility] CONSENT/REFUSAL FOR DIAGNOSIS AND TREATMENT 2021-03-12 05:36:36 Doctor Unassigned, [place] [facility] US PELVIS COMPLETE WITH TRANSVAGINAL 2021-03-12 01:30:25 Coral Granado [facility] HB ABO GROUPING 2021-03-12 01:07:00 [facility] 2021-03-12 00:55:00 Coral Granado [facility] COMP. METABOLIC PANEL ([id number]) 2021-03-12 00:55:00 Coral Granado [facility] CBC WITH DIFF 2021-03-12 00:55:00 Coral Granado [facility] COVID-19 (ID NOW RAPID TESTING) 2021-03-12 00:55:00 Coral Granado [facility] URINALYSIS 2021-03-12 00:33:00 Coral Granado [facility] POCT TEST 2021-03-12 00:33:00 Coral Granado [facility] NOTICE OF PRIVACY PRACTICES 2021-03-12 00:06:33 Doctor Unassigned, [place] [facility] CONSENT/REFUSAL FOR DIAGNOSIS AND TREATMENT 2021-03-12 00:05:49 Doctor Unassigned, [place] [facility] [id number] 2020-07-12 00:00:00 [email or web address] [facility] [id number] 2020-07-12 00:00:00 [email or web address] [facility] [id number] 2020-07-12 00:00:00 [email or web address] [facility] Encounters Start Date/Time End Date/Time Encounter Type Admission Type Attending [facility] Care Facility Care Department Encounter ID Source 2021-09-08 16:51:39 Emergency [facility] [id number] [facility] 2020-07-18 19:00:00 Inpatient Sheri Fuentes [facility] [id number] [facility] 2020-07-12 12:03:00 Inpatient Sheri Whiteside LINDA [id number] [facility] 2020-07-05 04:58:00 Inpatient Sheri Whiteside LINDA [id number] [facility] 2020-06-09 00:04:00 Inpatient Sheri Aguirre LINDA [id number] [facility] 2020-05-22 09:28:00 Inpatient Sheri Whiteside [facility] [id number] [facility] [facility] 00:04:00 Inpatient Sheri Aguirre LINDA [id number] [facility] 2020-04-25 08:31:00 Inpatient Sheri Aguirre LINDA [id number] [facility] 2020-01-26 15:33:00 Inpatient EL Sheri Whiteside ADMI [id number] [facility] 2025-12-11 08:30:00 2025-12-11 08:30:00 Outpatient PAUL DELCID [facility] [id number] [facility] 2025-02-13 08:00:00 2025-02-13 08:00:00 Outpatient PAUL DELCID [facility] [id number] [facility] 2024-12-09 00:00:00 2024-12-09 10:19:58 Case Management Paul Looney [facility] 1..840.114 350.1.13.10 4.2.7.2.686 [id number] [facility] 2024-12-09 08:30:00 2024-12-09 08:45:00 Nurse Visit Nurse, [facility] Paul Looney Nurse, [facility] 1..840.114 350.1.13.10 4.2.7.2.686 [id number] [facility] 2024-12-09 08:30:00 2024-12-09 08:30:00 Outpatient PAUL DELCID [facility] [id number] [facility] 2024-12-08 00:00:00 2024-12-08 14:08:30 Telephone Paul Looney [facility] 1.2.840.114 350.1.13.10 4.2.7.2.686 [id number] [facility] 2024-12-05 07:30:00 2024-12-05 08:00:43 Outpatient Davian PAUL LOONEY [facility] [id number] [facility] 2024-12-05 07:30:00 2024-12-05 08:00:43 Office Visit Paul Looney [facility] 1.2.840.114 350.1.13.10 4.2.7.2.686 [id number] [facility] 2024-06-13 14:00:00 2024-06-13 14:00:00 Outpatient FERN MCLAIN [id number] [facility] 2024-05-27 00:00:00 2024-05-27 00:00:00 Outpatient LAURA ARCINIEGA [id number] [facility] 2024-05-27 00:00:00 2024-05-27 00:00:00 Outpatient CRISPIN CHANDLER [id number] [facility] 2024-05-24 00:00:00 2024-05-24 00:00:00 Outpatient CRISPIN CHANDLER [id number] [facility] 2024-03-28 00:00:00 2024-03-28 00:00:00 Outpatient LAURA ARCINIEGA [id number] [facility] 2023-09-08 15:00:00 2023-09-08 15:00:00 Outpatient DEBBIE ORTIZ MARYLOU AGUIRRE [id number] [facility] 2023-09-06 00:00:00 2023-09-06 00:00:00 Outpatient GC_GCBZW_Ka diyala_S PRIV PRIV [id number] [facility] 2023-08-26 09:00:00 2023-08-26 09:00:00 Outpatient FERN MCLAIN MARYLOU AGUIRRE [id number] [facility] 2023-03-18 00:00:00 2023-03-18 00:00:00 Outpatient CRISPIN CHANDLER [id number] [facility] 2023-01-05 00:00:00 2023-01-05 00:00:00 Outpatient CRISPIN CHANDLER [id number] [facility] 2022-11-28 08:15:00 2022-11-28 08:15:00 Outpatient LAURA ARCINIEGA [id number] [facility] 2022-11-27 14:30:00 2022-11-27 14:30:00 Outpatient ISIDRO BURNETT [id number] [facility] 2022-11-27 00:00:00 2022-11-27 00:00:00 Outpatient LAURA ARCINIEGA [id number] [facility] 2022-11-13 14:00:00 2022-11-13 14:00:00 Outpatient ISIDRO BURNETT [id number] [facility] 2022-11-11 13:00:00 2022-11-11 13:00:00 Outpatient ISIDRO BURNETT [id number] [facility] 2022-10-27 13:30:00 2022-10-27 13:30:00 Outpatient CRISPIN CHANDLER [id number] [facility] 2022-10-21 00:00:00 2022-10-21 00:00:00 [id number] [facility] 2021-[facility]30 00:[facility]:00 2021-10-30 00:00:00 Outpatient CRISPIN CHANDLER MARYLOU [id number] [facility] 2021-08-29 11:02:58 2021-08-29 11:47:58 Office Visit Crispin Chandler 1.20.114 350.1.13.13 1.2.7.2.686 [id number] 0 [id number] 2021-08-29 11:02:58 2021-08-29 11:47:58 Office Visit Crispin Chandler 1.2840.114 350.1.13.13 1.2.7.2.686 [id number] [facility] 2021-08-29 11:30:00 2021-08-29 11:30:00 Outpatient GERALDINEKENDRA LENZNAOMI AGUIRRE [id number] [facility] 2021-08-28 00:00:00 2021-08-28 00:00:00 Outpatient CRISPIN CHANDLER MARYLOU AGUIRRE [id number] [facility] 2021-03-12 00:40:00 2021-03-12 05:33:00 Emergency X CLEMENT MARTINEZ [facility] ERT [id number] [facility] 2021-03-12 00:40:00 2021-03-12 05:33:00 Emergency Clement Martinez [facility] ([facility]) 1..114 350.1.13.10 4.2.7.2.686 [id number] [facility] 2021-03-12 00:00:00 2021-03-12 00:00:00 Orders Only Doctor Unassigned, [place] [facility] 1..114 350.1.13.10 4.2.7.2.686 [id number] [facility] 2021-03-11 19:22:00 2021-03-11 23:42:00 Emergency Coral Granado [facility] 1.840.114 350.1.13.10 4.2.7.2.686 [id number] [facility] 2020-05-15 07:00:00 2020-05-15 07:00:00 Outpatient Sheri Whiteside [facility] RADI [id number] [facility] 2020-02-22 07:00:00 2020-02-22 07:00:00 Outpatient Sheri Whiteside [facility] [id number] [facility] Results Test Description Test Time Test Comments Results Resul t Comments Source CT ABDOMEN PELVIS W CONTRAST 09:06:58 Fluid in nondilated small bowel and colon suggesting underlyingenteritis . The appendix is seen and is normal in caliber without adjacent stranding. Levoconvex lumbar scoliosis RL: 109AFC: 52233 End of report Examination: Computed tomography of [...] show levoconvex scoliosis of the lumbar spine. [facility], Radiant Results Inft User - 03/12/2021 4:08 AM CDTExamination: Computed tomography of the abdomen and pelvis with contrastOrdering Physician: CLEMENT Strauss: 03/12/2021 1:15 AMHistory: RLQ abdominal pain, appendicitis suspected (Age >= 14y) Comparison: None availableTechnique: Computed tomography of the abdomen and pelvis was performedafter the administration of nonionic intravenous contrast. Exams wereperformed using dose reduction techniques according to ALARA (as low asreasonably achievable) principles.Findings :Images of the lung bases are clear.The liver, [...] windows show levoconvex scoliosis of the lumbar spine.IMPRESSIONFlu id in nondilated small bowel and colon suggesting underlyingenteritis .The appendix is seen and is normal in caliber without adjacent stranding.Levoconve x lumbar scoliosisRL: 109AFC: 87867Lgz of report [facility] (78486)2021-03-12 01:36:09* Test Item Value Reference Range Interpretation Comme nts NA (test code = 8258666528) 135 mmol/L 135-145 K (test code = 2054596600) 3.5 mmol/L 3.5-5.0 CL (test code = 4275646164) 101 mmol/L 98-108 CO2 TOTAL (test code = 3185882104) 25 mmol/L 23-31 AGAP (test code = 0459154180) 2-16 BUN (test code = 7921128867) 8 mg/dL 7-23 GLUCOSE (test code = 9625121835) 100 mg/dL 70-110 CREATININE (test code = 7347853355) 0.63 mg/dL 0.50-1.04 TOTAL BILI (test code = 7069322848) 0.9 mg/dL 0.1-1.1 CALCIUM (test code = 7718870786) 9.1 mg/dL 8.6-10.6 T PROTEIN (test code = 2032273652) 7.2 g/dL 6.3-8.2 ALBUMIN (test code = 6470349646) 4.2 g/dL 3.5-5.0 ALK PHOS (test code = 0474284303) 72 U/L 34-122 ALTv (test code = 1742-6) 10 U/L 5-35 AST(SGOT) (test code = 5066603783) 19 U/L 13-40 eGFR (test code = 3847972152) mL/min/1.73m2 ROSANGELA (test code = ROSANGELA) Association of [...] or urine or abnormalities in imaging tests). [facility] 01:35:32* Test Item Value Reference Range Interpretation Comme nts LIPASE (test code = 8391661342) 43 U/L 0-220 Lab Interpretation (test cod e = 96639-6) [facility]APID TESTING)2021-03-12 01:29:26* Test Item Value Reference Range Interpretation Comme nts SARS-CoV-2 Rapid ID NOW (test code = 16010-2) Not Detected Not Detected ROSANGELA (test code = ROSANGELA) ID NOW COVID-19 As say is an isothermal nucleic acid amplification test intended for the qualitative detection of nucleic acid from SARS-CoV-2 viral RNA in nasopharyngeal (HEAD LINEMAN) specimens. It is used under Emergency Use [...] patient testing if clinically indicated. Lab Interpretation (test code = 97607-9) [facility]21-[facility] 01:21:22* Test Item Value Reference Range Interpretation Comme nts APPEARANCE (test code = 2203285244) Hazy Clear A COLOR (test code = 8453367963) Yellow Yellow PH (test code = 5394739351) 4.8-8.0 SP GRAVITY (test code = 1525713313) 1.003-1.030 GLU U QUAL (test code = 9433222071) Normal Normal BLOOD (test code = 9415250894) 1+ Negative A KETONES (test code = 5470984711) Negative Negative PROTEIN (test code = 2887-8) Negative Negative UROBILIN (test code = 3105646895) 2.0 mg/dL Normal A BILIRUBIN (test code = 6422425917) Negative Negative NITRITE (test code = 2491418687) Negative Negative LEUK CAROLIN (test code = 1492082655) 250/uL Negative A RBC/HPF (test code = 0435689672) See_Comment [Automated messa ge] The system which generated this result transmitted reference range: 0 - 3 HPF. The reference range was not used to interpret this result as normal/abnormal. WBC/HPF (test code = 6603474329) See_Comment H [Automated messa ge] The system which generated this result transmitted reference range: 0 - 5 HPF. The reference range was not used to interpret this result as normal/abnormal. BACTERIA (test code = 7541529352) Few Negative A MUCOUS (test code = 9037362253) Moderate Negative LPF A SQ EPITH (test code = 3551449016) HPF Lab Interpretation (test code = 96474-7) Abnormal [facility] WITH [id number] 01:15:04* Test Item Value Reference Range Interpretation Comme nts WBC (test code = 6690-2) See_Comment H [Automated message] The system which generated this result transmitted reference range: 4.30 - 11.10 10*3/?L. The reference range was not used to interpret this result as normal/abnormal. RBC (test code = 789-8) See_Comment [Automated message] The system which generated this result transmitted reference range: 3.93 - 5.25 10*6/?L. The reference range was not used to interpret this result as normal/abnormal. HGB (test code = 718-7) 10.9 g/dL 11.6-15.0 L HCT (test code = 4544-3) 34.0 % 35.7-45.2 L MCV (test code = 787-2) 80.0 fL 80.6-95.5 L MCH (test code = 785-6) 25.6 pg 25.9-32.8 L MCHC (test code = 786-4) 32.1 g/dL 31.6-35.1 RDW-SD (test code = 34331-4) 37.7 fL 39.0-49.9 L RDW-CV (test code = 788-0) 13.2 % 12.0-15.5 PLT (test code = 777-3) See_Comment H [Automated message] The system which generated this result transmitted reference range: 166 - 358 10*3/?L. The reference range was not used to interpret this result as normal/abnormal. MPV (test code = 23140-4) 11.5 fL 9.5-12.9 NRBC/100 WBC (test code = 5408501887) See_Comment [Automated message] The system which generated this result transmitted reference range: 0.0 - 10.0 /100 WBCs. The reference range was not used to interpret this result as normal/abnormal. NRBC x10^3 (test code = 9121130950) <0.01 See_Comment [Automated message] The system which generated this result transmitted reference range: 10*3/?L. The reference range was not used to interpret this result as normal/abnormal. GRAN MAT (NEUT) % (test code = 770-8) 82.1 % IMM GRAN % (test code = 6487334448) 0.90 % LYMPH % (test code = 736-9) 10.1 % MONO % (test code = 5905-5) 6.6 % EOS % (test code = 713-8) 0.1 % BASO % (test code = 706-2) 0.2 % GRAN MAT x10^3(ANC) (test code = 9984123413) 14.42 10*3/uL 1.88-7.09 H IMM GRAN x10^3 (test code = 3932874583) 0.16 10*3/uL 0.00-0.06 H LYMPH x10^3 (test code = 731-0) 1.78 10*3/uL 1.32-3.29 MONO x10^3 (test code = 742-7) 1.16 10*3/uL 0.33-0.92 H EOS x10^3 (test code = 711-2) <0.03 0.03-0.39 L BASO x10^3 (test code = 704-7) 0.04 10*3/uL 0.01-0.07 Lab Interpretation (test code = 91946-9) Abnormal [facility] [id number] 00:33:00* Test Item Value Reference Range Interpretation Comme nts POCT PREG (test code = 1605) negative On board controls acceptable with C Line (test code = 3574) present POCT PREG LOT # (test code = 3575) [id number] POCT PREG TEST DATE ( test code = 3576) 10/08/2022 Lab Interpretation (test cod e = 65417-8) Normal [facility] THIRD [id number] 18:00:00 RUN DATE: 07/20/20 [facility] PAGE 1 RUN TIME: 817 Specimen Inquiry RUN USER: INTERFACE ------- -----PATIENT: ROSELIA YOUNGER LOC: OSIRISMONO U #: [id number] AGE/SX: 20/F ROOM: [facility] RE07/12/20REG DR: Sheri Whiteside MD : 02 BED: A DIS: 07/15/20 STATUS: DIS IN TLOC: SPEC #: [id number] RECD:07/12/20-942 STATUS: SOLO HORTA #: [id number] OSVALDO: 07/12/20- SUBM DR: Sheri Whiteside MD ENTERED: 07/17/20-43 SP TYPE: PLACIII OTHR DR: ORDERED: LEVEL V SURGICA CODES: ZQ8608 - PLACENTA, NOS PROCEDURES: LEVEL V SURGICA (Incomplete) TISSUES: PLACENTA, NOS - PLACENTA CLINICAL HISTORY 20 year old, 39.5 weeks, [id number], vaginal delivery, chlamydia (kr) FINAL DIAGNOSIS Placenta, 39.5 weeks gestational age, vaginal delivery: - third trimester placenta, 580 gms (80th percentile) - acute chorioamnionitis (Stage 1, Grade 1) - mild acute umbilical cord phlebitis (Stage 1, Grade 1) - meconium macrophages within membranes - delayed villous maturation CPT code(s): 26827 [facility] GROSS DESCRIPTIONThe specimen was received in a container, labeled with the patient's name, unit number and designated "placenta". The following attributes are observed: Cord insertion: 5 cm from margin Cord length:35 cm Number of vessels: 3 Cord color: [...] TIME: 817 Specimen Inquiry RUN USER: INTERFACE SPEC #: [id number] PATIENT: ROSELIA YOUNGER #[id number] (Continued) GROSS DESCRIPTION (Continued) Accessory lobes: None Maternal surface: Lobulated and disrupted, but complete Parenchyma: Red-brown and spongy Parenchyma lesions: None Cassettes: A1 through A4 larisa 07/17/20 Signed Tana Tony MD 07/19/20 1800 END OF REPORT PROTHROMBIN [id number] 06:32:00* Test Item Value Reference Range Interpretation Comme [facility] PROTHROMBIN TIME PATIENT (te st code = PTP) 10.6 secs 10.4-12.4 N THROMBOPLASTIN TIME [id number] 06:32:00* Test Item Value Reference Range Interpretation Comme nts THROMBOPLASTIN TIME PARTIAL (test code = PTT) 26.5 secs 22-38 N [id number] 06:32:00* Test Item Value Reference Range Interpretation Comme nts FIBRINOGEN (test code = FIB) 323 mg/dL 309-518 N CBC W/AUTO [id number] 06:13:00* Test Item Value Reference Range Interpretation Comme nts WHITE BLOOD CELL (test code = WBC) 25.4 K/mm3 6.6-12.1 RESULTS CALLED Yuri ENGLAND.READ BACK & CONFIRMED? YES.BY FJENNIFER. 07/13/20 0613. RED BLOOD CELL (test code = RBC) 3.84 M/mm3 3.45-5.01 N HEMOGLOBIN (test code = HGB) 10.8 g/dL 10.7-13.9 N HEMATOCRIT (test code = HCT) 31.8 % 32.1-42.1 L MEAN CELL VOLUME (test code = MCV) 83 fL 84.1-94.8 L MEAN CELL HGB (test code = MCH) 28.1 pg 27-35 N MEAN CELL HGB CONCETRATION (test code = MCHC) 34.0 gm/dL 32.2-34.1 N RED CELL DISTRIBUTION WIDTH (test code = RDW) 16.0 % 12.4-16.5 N PLATELET COUNT (test code = PLT) 146 K/mm3 133-385 N MEAN PLATELET VOLUME (test code = MPV) 14.4 fl 9.1-12.7 H NEUTROPHIL % (test code = NT%) 81.7 % 56.5-79.4 H LYMPHOCYTE % (test code = LY%) 9.7 % 14.3-34.3 L MONOCYTE % (test code = MO%) 7.7 % 5.1-10.4 N EOSINOPHIL % (test code = EO%) 0.0 % 0.1-3.0 L BASOPHIL % (test code = BA%) 0.2 % 0.1-1.0 N NEUTROPHIL # (test code = NT#) 20.7 K/mm3 LYMPHOCYTE # (test code = LY#) 2.5 K/mm3 MONOCYTE # (test code = MO#) 2.0 K/mm3 EOSINOPHIL # (test code = EO#) 0.01 K/mm3 BASOPHIL # (test code = BA#) 0.1 K/mm3 RBC MORPHOLOGY REQUIRED (test code = RBCM) NORMAL NORMAL PLATELET MORPHOLOGY REQUIRED (test code = PLTMR) NORMAL NORMAL AG HEPATITIS B [id number] 15:11:00* Test Item Value Reference Range Interpretation Comme nts AG HEPATITIS B SURFACE (test code = HBSAG) NONREACTIVE NONREACTIVE AB HEPATITIS C [id number] 15:11:00* Test Item Value Reference Range Interpretation Comme nts AB HEPATITIS C (test code = HCVAB) NONREACTIVE NONREACTIVE SIGNAL TO CUTOFF (test code = CUTOFF) 0.19 <0.80 N AB [id number] 15:11:00* Test Item Value Reference Range Interpretation Comme nts AB TREPONEMA (test code = TREPAB) NONREACTIVE NONREACTIVE AB HIV 1 15:11:00* Test Item Value Reference Range Interpretation Comme nts AB HIV 1 2 (test code = MIH52LH) NONREACTIVE NONREACTIVE Done by [employer] 4th Gen HIV Ag/Ab Combo Screen COVID 19 Asymptomatic IH [id number] 13:48:00* Test Item Value Reference Range Interpretation Comme nts COVID 19 Asymptomatic IH AG (test code = COVNONPUIAG) NEGATIVE NEGATIVE This test has be en authorized only for the detection ofproteins from SARS-CoV-2, not for any other viruses orpathogens. Negative results should be treated as presumptive andconfirmed with a molecular assay, if necessary for patientmanagement. Negative results do not rule out COVID-19 andshould not be used as the sole basis for treatment orpatient management decisions, including infection controldecisions. Negative results should be considered in thecontext of a patient's recent exposures, history and thepresence of clinical signs and symptoms consistent withCOVID-19. This test has not been FDA cleared or approved; the test hasbeen authorized by FDA under an Emergency Use Authorization(EUA) for use by laboratories certified under the CLIA thatmeet the requirements to perform moderate, high or waivedcomplexity tests. This test is authorized for use at thePoint of Care (POC), i.e., in patient care settingsoperating under a CLIA Certificate of Waiver, Certificate ofCompliance, or Certificate of Accreditation. This test is only authorized for the duration of thedeclaration that circumstances exist justifying theauthorization of emergency use of in vitro diagnostic testsfor detection and/or diagnosis of COVID-19 under Vikphve880(b)(1) of the Act, 21 U.S.C. 360bbb-3(b)(1), unless theauthorization is terminated or revoked sooner. CBC W/AUTO [id number] 13:10:00* Test Item Value Reference Range Interpretation Comme nts WHITE BLOOD CELL (test code = WBC) [...] pg 27-35 N MEAN CELL HGB CONCETRATION ( test code = MCHC) 32.3 gm/dL 32.2-34.1 N RED CELL DISTRIBUTION WIDTH (test code = RDW) 15.8 % 12.4-16.5 N PLATELET COUNT (test code = PLT) 193 K/mm3 133-385 N IMMATURE PLATELET FRACTION ( test code = IPF) 22.8 % 0.0-10.8 H NEUTROPHIL % (test code = NT%) 76.7 [...] = BA#) 0.0 K/mm3 RBC MORPHOLOGY REQUIRED (jason t code = RBCM) NORMAL NORMAL PLATELET MORPHOLOGY REQUIRED (test code = PLTMR) NORMAL NORMAL - US PREG UT [id number] 00:00:00Patient Name: ROSELIA YOUNGER Unit No: [id number] EXAMS: CPT CODE: [id number] US PREG [place] TRANSVAGINAL [address] [facility] [address] [place], [place] [address] OBSTETRICAL ULTRASOUND REPORT Pat. Name: ROSELIA YOUNGER Pat. No: [id number] Study Date: 05/15/2020 7:38am , Age: 02 2000, 20 Pregnancies: 1, Para 0 LMP: Unknown GA by 1st: 31w3d GA by US: 31w2d GA Selected: 31w3d (From First S) FABIOLA: 07/14/2020 Referring MD: SHERI WHITESIDE Mechatronics Technician: Alia Rios RDMS CPT4: USPREGFU Admitting MD: SHERI WHITESIDE Hist/Ind: SCAN 2 SIZE LESS THAN DATES MEASUREMENTS AGE GROWTH EVALUATION Measurement GA Range Srce %for GA Ratios ----- ---- ------- BPD 8.0 cm 32w3d (71a5q-42g5s) Hadl BPD 66% FL/BPD 0.74 (0.71 - 0.87) HC 29.6 cm 32w2d (43p2e-00q8h) Hadl HC 63% FL/AC 0.22 (0.20 - 0.24) APD 8.8 cm APD HC/AC 1.09 (0.96 - 1.15) TAD 8.5 cm TAD CI 0.80 (0.70 - 0.86) AC 27.2 cm 31w2d (28w2d- 34w2d) Hadl AC 48% FL 5.9 cm 30w3d (43u8a-25p0f) Hadl FL 35% HL 5.0 cm 29w2d (80n3d-45u3g) Stef HL 14% GA for sonogram 31w2d (56n5v-26k5o) Weight Estimate: based on (BPD,HC,AC,FL) Hadlock Weight: 1743 gm (1632-4198) Hadlo : 3lbs, 13oz Normal: 1707 gm (8433-7410) Brenn Wt% 52% for 31.4 wks Cervical Length: 2.3 cm Heart Rate: 145 bpm Amniotic Fluid Index: 14.5cm (08.7- 24.0) Q1: 5.3cm Q2: 2.8cm Q3: 2.6cm Q4: 3.8cm MATERNAL ANATOMY Ovaries LxHxW (cm) Right 1.8 x 1.2 x 1.6 Vol: 1.8cc Left 2.7 x 1.2 x 1.7 Vol: 2.9cc Ovarian Cysts LxHxW (cm) R1: 1.1 x 0.8 x 1.1 Desc: Follicular [facility] NAME: ROSELIA YOUNGER Radiology Department PHYS: - Sheri Whiteside MD [address] : 2000 AGE: 20 SEX: [place], [place] [address] LOC: VONDA PHONE #: [phone] EXAM DATE: 05/15/2020 STATUS: DEP CLI FAX #: [phone] RAD NO: Page 1 Signed Report (CO NTINUED) Patient Name: ROSELIA YOUNGER Unit No: [id number] EXAMS: CPT CODE: [id number] [facility] TRANSVAGINAL [address] (Continued) CLINICAL SUMMARY Type of Gestation: Perez [...] Nathan Francois MD CC: Technologist: Alia Rios RUST Probe: [id number] Trnscrbd D/ (699) RadhaTYSHAWN Advanced To Signed Dt/Tm/User: 05/21/20 (699) ANT Orig Print D/T: S: 05/21/2020 (699) [facility] NAME: [facility] Radiology Department PHYS: [email or web address]Sheri Lovell MD [address] : 2000 AGE:20 SEX: [place] [address] LOC: RadhaRAD PHONE #: [phone] EXAM DATE: 05/15/2020 STATUS: DEP CLI FAX #: [phone] RAD NO: Page 2 Signed Report Patient Name: ROSELIA YOUNGER Unit No: [id number] EXAMS: CPT CODE: [id number] US PREG [place] TRANSVAGINAL [address] (Continued) [facility] Rad[facility] Department PHYS: MARIELLEKavehSheri Nava MD [address] : 2000 AGE: 20 SEX: F [place] [address] LOC: RadhaRAD PHONE #: [phone] EXAM DATE: 05/15/2020 STATUS: DEP CLI FAX #: [phone] RAD NO: Page 3 Signed Report- US FLW [id number] 09:55:00Patient Name: ROSELIA YOUNGER Unit No: [id number] Report Has Been Amended EXAMS: CPT CODE: [id number] [place] [address] Addendum - 05/15/2020 SIGNED 05/15/2020 ADDENDUM: [id number] US/USPREGFU [facility] [address] [place] [address] OBSTETRICAL ULTRASOUND REPORT ------- Pat. Name: ROSELIA YOUNGER Pat. No: [id number] Study Date: 05/15/2020 7:38am , Age: 02 2000, 20 Pregnancies: 1, Para 0 LMP: Unknown GA by 1st: 31w3d GA by US: 31w2d GA Selected: 31w3d (From First S) FABIOLA: 07/14/2020 Referring MD: SHERI WHITESIDE Mechatronics Technician: Alia Rios RDMS CPT4: USPREGFU Admitting MD: SHERI WHITESIDE Hist/Ind: SCAN 2 SIZE LESS THAN DATES MEASUREMENTS AGE GROWTH EVALUATION Measurement GA Range Srce %for GA Ratios ----- ---- ------- BPD 8.0 cm 32w3d (27p8t-09h8p) Hadl BPD 66% FL/BPD 0.74 (0.71 - 0.87) HC 29.6 cm 32w2d (36j9d-14u4i) Hadl HC 63% FL/AC 0.22 (0.20 - 0.24) APD 8.8 cm APD HC/AC 1.09 (0.96 - 1.15) TAD 8.5 cm TAD CI 0.80 (0.70 - 0.86) AC 27.2 cm 31w2d (28w2d- 34w2d) Hadl AC 48% FL 5.9 cm 30w3d (35y9w-06m6o) Hadl FL 35% HL 5.0 cm 29w2d (42j9j-00h8g) Stef HL 14% GA for sonogram 31w2d (43k3s-79y4m) Weight Estimate: based on (BPD,HC,AC,FL) Hadlock Weight: 1743 gm (7508-3346) Hadlo : 3lbs, 13oz Normal: 1707 gm (1758-3137) Brenn Wt% 52% for 31.4 wks Cervical Length: 2.3 cm Heart Rate: 145 bpm Amniotic Fluid Index: 14.5cm (08.7- 24.0) Q1: 5.3cm Q2: 2.8cm Q3: 2.6cm Q4: 3.8cm MATERNAL ANATOMY Ovaries LxHxW (cm) Right 1.8 x 1.2 x 1.6 Vol: 1.8cc Left 2.7 x 1.2 x 1.7 Vol: 2.9cc Ovarian Cysts LxHxW (cm) R1: 1.1 x 0.8 x 1.1 Desc: Follicular [facility] NAME: ROSELIA YOUNGER Radiology Department PHYS: Sheri Hdz MD [address] : 2000 AGE: 20 SEX: F [place], [place] [address] LOC: VONDA PHONE #: [phone] EXAM DATE: 05/15/2020 STATUS: REG CLI FAX #: [phone] RAD NO: Page 1 Signed Report (CONTINUED) Patient Name: ROSELIA YOUNGER Unit No: [id number] Report Has Been Amended EXAMS: CPT CODE: [id number] [place] [address] (Continued) CLINICAL SUMMARY Type of Gestation: Perez [...] at 0955 Reported and signed by: Nathan huynh MD Transcribed: 05/15/2020 ([id number]) [id number] Addendum - 05/15/2020 SIGNED 05/15/2020 ADDENDUM: [id number] /[facility] [facility] [address] [place] [address] OBSTETRICAL ULTRASOUND REPORT Pat. Name: ROSELIA YOUNGER Pat. No: [id number] Study Date: 05/15/2020 7:38am , Age: 02 2000, 20 Pregnancies: 1, Para 0 LMP: Unknown GA by 1st: 31w3d GA by US: 31w2d GA Selected: 31w3d (From First S) FABIOLA: 07/14/2020 Referring MD: SHERI WHITESIDE Mechatronics Technician: Alia Rios RDMS CPT4: USPREGFU [facility] [place] [facility] NAME: ROSELIA YOUNGER Radiology Department PHYS: LINDASUZI. - Sheri Whiteside LY[address] : 2000 AGE: 20 SEX: F [place], [place] [address] LOC: RadhaRAD PHONE #: [phone] EXAM DATE: 05/15/2020 STATUS: REG CLI FAX #: [phone] RAD NO: Page 2 Signed Report (CONTINUED) Patient Name: ROSELIA YOUNGER Unit No: [id number] Report Has Been Amended EXAMS: CPT CODE: [id number] [place] UP [address] (Continued) Admitting MD: SHERI WHITESIDE Hist/Ind: SCAN 2 SIZE LESS THAN DATES MEASUREMENTS AGE GROWTH EVALUATION Measurement GA Range Srce %for GA Ratios ----- ---- ------- BPD 8.0 cm 32w3d (14n0t-10w4q) Hadl BPD66% FL/BPD 0.74 (0.71 - 0.87) HC 29.6 cm 32w2d (98f5u-47e7a) Hadl HC 63% FL/AC 0.22 (0.20 - 0.24) APD 8.8 cm APD HC/AC 1.09 (0.96 - 1.15) TAD 8.5 cm TAD CI 0.80 (0.70 - 0.86) AC 27.2 cm 31w2d (25h1f-26n1h) Hadl AC 48% FL 5.9 cm 30w3d (32t6f-45b0r) Hadl FL 35% HL 5.0 cm 29w2d (32x3k-00i9g) Stef HL 14% GA for sonogram 31w2d (33s3i-22h5r) Weight Estimate: based on (BPD,HC,AC,FL) Hadlock Weight: 1743 gm (3288-9175) Hadlo : 3lbs, 13oz Normal: 1707 gm (8760-4196) Brenn Wt% 52% for 31.4 wks Cervical Length: 2.3 cm Heart Rate: 145 bpm Amniotic Fluid Index: 14.5cm (08.7- 24.0) Q1: 5.3cm Q2: 2.8cm Q3: 2.6cm Q4: 3.8cm MATERNAL ANATOMY Ovaries LxHxW(cm) Right 1.8 x 1.2 x 1.6 Vol: 1.8cc Left 2.7 x 1.2 x 1.7 Vol: 2.9cc Ovarian Cysts LxHxW (cm) R1: 1.1 x 0.8 x 1.1 Desc: Follicular CLINICAL SUMMARY Type of Gestation: Perez Intrauterine in vertex presentation. size is appropriate for gestational age. growth: C onsistent with normal growth motion and organs seen: heart motion seen bodyand limb movements seen Placental location: Anterior left Placental maturity : Grade 2 There is no evidence of placenta previa. Amniotic fluid volume is normal. Uterus and adnexa: No significant abnormality is seen. Cervix length is 2.3 cm. [facility] NAME: ROSELIA YOUNGER RadiologyDepartment PHYS: GRACE - Sheri Whiteside MD [address] : 2000 AGE: 20 SEX: F [place], [place] [address] LOC: RadhaRAD PHONE #: [phone] EXAM DATE: 05/15/2020 STATUS: GAYLECLI FAX #: [phone] RAD NO: Page 3 Signed Report (CONTINUED) Patient Name: ROSELIA YOUNGER Unit No: [id number] Report Has Been Amended EXAMS: CPT CODE: [id number] [place] FLW UP 74859 (Continued) Thank you for allowing us to participate in the care of this patient. Nathan Francois M.D. Electronic Signature 05/15/2020 08:28am Revised Electronically Signedby Nathan Francois MD on 05/15/2020 at 0828 Reported and signed by: Nathan Francois MD Transcribed: 05/15/2020 (0898) [email or web address] Report [facility] [address] [place], [place] OBSTETRICAL ULTRASOUND REPORT Pat. Name: ROSELIA YOUNGER Pat. No: [id number] Study Date: 05/15/2020 7:38am , Age: 02 2000, 20 Pregnancies: 1, Para 0 LMP: Unknown GA by 1st: 31w3d GA by US: 31w2d GA Selected: 31w3d (From First S) FABIOLA: 07/14/2020 Referring MD: SHERI WHITESIDE Mechatronics Technician: Alia Rios, RDMSCPT4: USPREGFU Admitting MD: SHERI WHITESIDE Hist/Ind: SCAN 2 SIZE LESS THAN DATES MEASUREMENTS AGE GROWTH EVALUATION Measurement GA Range Srce %for GA Ratios ----- ---- ------- BPD 8.0 cm 32w3d (28c1x-36w3h) Hadl BPD 66% FL/BPD 0.74 (0.71 - 0.87) HC 29.6 cm 32w2d (29w2d- 35w2d) Hadl HC 63% FL/AC 0.22 (0.20 - 0.24) APD 8.8 cm APD HC/AC 1.09 (0.96 - 1.15) TAD 8.5cm TAD CI 0.80 (0.70 - 0.86) AC 27.2 cm 31w2d (18s3b-70f6g) Hadl AC 48% FL 5.9 cm 30w3d (67k8n-25w4o) Hadl FL 35% HL 5.0 cm 29w2d (51x1s-71z1m) Stef HL 14% GA for sonogram 31w2d (91b1i-96y2o) Weight Estimate: based on (BPD,HC,AC,FL) Hadlock Weight: 1743 gm (9470-8482) Hadlo : 3lbs, 13oz Normal: 1707 gm (4954-7085) Brenn Wt% 52% for 31.4 wks [facility] NAME: ROSELIA YOUNGER Radiology Department PHYS: MARIELLE. - Sheri Whiteside MD [address] : 2000 AGE: 20 SEX: [place] [address] LOC: VONDA PHONE #: [phone] EXAM DATE: 05/15/2020 STATUS: REG CLI FAX #: [phone] RAD NO: Page 4 Signed Report (CONTINUED) Patient Name: ROSELIA YOUNGER Unit No: [id number] Report Has Been Amended EXAMS: CPT CODE: [id number] US FLW AP20271 (Continued) Cervical Length: 2.3 cm Heart Rate: 145 bpm MATERNAL ANATOMY Ovaries LxHxW (cm) Right 1.8 x 1.2 x 1.6 Vol: 1.8cc Left 2.7 x 1.2 x 1.7Vol: 2.9cc Ovarian Cysts LxHxW (cm) R1: 1.1 x 0.8 x 1.1 Desc: Follicular CLINICAL SUMMARY Type of Gestation: Perez Intrauterine in vertex presentation. size is appropriate for gestational age. growth: Consistent with normal growth motion and organsseen: heart motion seen body and limb movements [...] signed by: Nathan Francois MD CC: Sheri Whiteside MD Technologist: Alia Rios RDMS Probe: Trnscrbd D/ (827) [email or web address] Orig Print D/T: S: 05/15/2020 (827) [facility] NAME: [facility] Radiology Department PHYS: [facility] [[email or web address]] Sheri Barrow MD [address] : 2000 AGE: 20 SEX: F [place] [address] LOC: RadhaRAD PHONE #: [phone] EXAM DATE: 05/15/2020 STATUS: REG CLI FAX #: [phone] RAD NO: Page 5 Signed Report Patient Name: ROSELIA YOUNGER Unit No: [id number] Report Has Been Amended EXAMS: CPT CODE: [id number] [place] [address] (Continued) [facility] NAME: [facility] Radiology Department PHYS: [facility] [[email or web address]]SUZI Sheri Whiteside MD [address] : 2000 AGE: 20 SEX: F [place] [address] LOC: RadhaRAD PHONE #: [phone] EXAM DATE: 05/15/2020 STATUS: REG CLI FAX #: [phone] RAD NO: Page 6 Signed Report- US FLW [id number] 08:28:00Patient Name: ROSELIA YOUNGER Unit No: [id number] EXAMS: CPT CODE: [id number] [place] [address] OBSTETRICAL ULTRASOUND REPORT Pat. Name: ROSELIA YOUNGER Pat. No: [id number] Study Date: 05/15/2020 7:38am , Age: 02 2000, 20 Pregnancies: 1, Para 0 LMP: Unknown GA by 1st: 31w3d GA by US: 31w2d GA Selected: 31w3d (From First S) FABIOLA: 07/14/2020 Referring MD: SHERI WHITESIDE Mechatronics Technician: Alia Rios RDMS CPT4: USPREGFU Admitting MD: SHERI WHITESIDE Hist/Ind: SCAN 2 SIZE LESS THAN DATES MEASUREMENTS AGE GROWTH EVALUATION Measurement GA Range Srce %for GA Ratios ----- ---- ------- BPD 8.0 cm 32w3d (87j7v-59n1d) Hadl BPD 66% FL/BPD 0.74 (0.71 - 0.87) HC 29.6 cm 32w2d (76e6t-59k1c) Hadl HC 63% FL/AC 0.22 (0.20 - 0.24) APD 8.8 cm APD HC/AC 1.09 (0.96 - 1.15) TAD 8.5 cm TAD CI 0.80 (0.70 - 0.86) AC 27.2 cm 31w2d ( 79x4n-04y4j) Hadl AC 48% FL 5.9 cm 30w3d (27j0p-64h7d) Hadl FL 35% HL 5.0 cm 29w2d (63l7g-04w1g) Stef HL 14% GA for sonogram 31w2d (09h8j-08t4w) Weight Estimate: based on (BPD,HC,AC,FL) HadlockWeight: 1743 gm (7092-5440) Hadlo : 3lbs, 13oz Normal: 1707 gm (9305-2049) Breelda Wt% 52% for 31.4 wks Cervical Length: 2.3 cm Heart Rate: 145 bpm MATERNAL ANATOMY Ovaries LxHxW (cm) Right 1.8 x 1.2 x 1.6 Vol: 1.8cc Left 2.7 x 1.2 x 1.7 Vol: 2.9cc Ovarian Cysts LxHxW (cm) R1: 1.1x 0.8 x 1.1 Desc: Follicular CLINICAL SUMMARY Type of Gestation: Perez Intrauterine in vertex presentation. size is appropriate for gestational age. growth: [facility] NAME: MONICA YOUNGERA Radiology Department PHYS: MARIELLE. - Sheri Whiteside MD [address] : 2000 AGE: 20 SEX: F [place], [place] [address] LOC: Cesar.RAD PHONE #: [phone] EXAM DATE: 05/15/2020 STATUS: REG CLI FAX #: [phone] RAD NO: Page 1 Signed Report (CONTINUED) Patient Name: ROSELIA YOUNGER Unit No: [id number] EXAMS: CPT CODE: [id number] [place]W UP [address] (Continued) Consistent with normal growth motion and [...] signed by: Nathan Francois MD CC: Sheri Whiteside MD Technologist: Alia Rios RDMS Probe: Trnscrbd D/ (827) [email or web address] OrigPrint D/T: S: 05/15/2020 (827) [facility] NAME: HERB YOUNGERRRA Radiology Department PHYS: MARIELLE. Sheri Whiteside MD [address] : 2000 AGE: 20 SEX: F [place], [place] [address] LOC: Cesar.RAD PHONE #: [phone] EXAM DATE: 05/15/2020 STATUS: REG CLI FAX #: [phone] RAD NO: Page 2 Signed Report Patient Name: ROSELIA YOUNGER Unit No: [id number] EXAMS: CPT CODE: [id number] [place] [address] (Continued) [facility] NAME: ROSELIA YOUNGER Radiology Department PHYS: MARIELLE.01 - Sheri Whiteside MD [address] : 2000 AGE: 20 SEX: [place] [address] LOC: RadhaRAD PHONE #: [phone] EXAM DATE: 05/15/2020 STATUS: REG CLI FAX #: [phone] RAD NO: Page 3 Signed Report- US FLW [id number] 08:28:00Patient Name: ROSELIA YOUNGER Unit No: [id number] Report Has Been Amended EXAMS: CPT CODE: [id number] [place] [address] Addendum - 05/15/2020 SIGNED 05/15/2020 ADDENDUM: [id number] US/USPREGFU [facility] [address] [place], [place] [address] OBSTETRICAL ULTRASOUND REPORT ------- Pat. Name: ROSELIA YOUNGER Pat. No: [id number] Study Date: 05/15/2020 7:38am , Age: 02 2000, 20 Pregnancies: 1, Para 0 LMP:Unknown GA by 1st: 31w3d GA by US: 31w2d GA Selected: 31w3d (From First S) FABIOLA: 07/14/2020 Referring MD: SHERI WHITESIDE Mechatronics Technician: Alia Rios RDMS CPT4: USPREGFU Admitting MD: FCO WHITESIDE Hist/Ind: SCAN 2 SIZE LESS THAN DATES MEASUREMENTS AGE GROWTH EVALUATION Measurement GA Range Srce %for GA Ratios ----- ---- ------- BPD 8.0 cm 32w3d (99o0e-59o8v) Hadl BPD 66% FL/BPD 0.74 (0.71 - 0.87) HC 29.6 cm 32w2d (66w9o-15r9n) Hadl HC 63% FL/AC 0.22 (0.20- 0.24) APD 8.8 cm APD HC/AC 1.09 (0.96 - 1.15) TAD 8.5 cm TAD CI 0.80 (0.70 - 0.86) AC 27.2 cm 31w2d (28w2d- 34w2d) Hadl AC 48% FL 5.9 cm 30w3d (24o8h-19g0x) Hadl FL 35% HL 5.0 cm 29w2d (70m8x-39m1l) Stef HL 14% GA for sonogram 31w2d (53o4v-33l6j) Weight Estimate: based on (BPD,HC,AC,FL) Hadlock Weight: 1743 gm (7517-5867) Hadlo : 3lbs, 13oz Normal: 1707 gm (9401-2178) Brenn Wt% 52% for 31.4 wks Cervical Length: 2.3 cm Heart Rate: 145 bpm Amniotic Fluid Index: 14.5cm (08.7- 24.0) Q1: 5.3cm Q2: 2.8cm Q3: 2.6cm Q4: 3.8cm MATERNAL ANATOMY Ovaries LxHxW (cm) Right 1.8 x 1.2 x 1.6 Vol: 1.8cc Left 2.7 x 1.2 x 1.7 Vol: 2.9cc Ovarian Cysts LxHxW (cm) R1: 1.1 x 0.8 x 1.1 Desc: Follicular [facility] [place] [facility] NAME: ROSELIA YOUNGER Radiology Department PHYS: GRACE- Sheri Whiteside MD [address] : 2000 AGE: 20 SEX: F [place], [place] [address] LOC: RadhaRAD PHONE #: [phone] EXAM DATE: 05/15/2020 STATUS: GAYLE CLI FAX #: [phone] RAD NO: Page 1 Signed Report (CONTINUED) Patient Name: ROSELIA YOUNGER Unit No: [id number] Report Has Been Amended EXAMS: CPT CODE: [id number] [facility] [address] (Continued) CLINICAL SUMMARY Type of Gestation: Perez Intrauterine in vertex presentation. size is appropriate for gestational age. growth: Consistent with normal growth motion and organs seen: heart motion seen body and limb movements seen Placental location: Anterior left Placental maturity : Grade 2 There is no evidence of placentaprevia. Amniotic fluid volume is normal. Uterus and adnexa: No significant abnormality is seen. Cervix length is 2.3 cm. Thank you for allowing us to participate in the care of this patient. Nathan Francois M.D. Electronic Signature 05/15/2020 08:28am Revised at 0828 Reported and signed by: Nathan arriaga MD Transcribed: 05/15/2020 (0828) [email or web address] Report [facility] [address] [place], [place] [address] [place], [place] [address] OBSTETRICAL ULTRASOUND REPORT Pat. Name: ROSELIA YOUNGER Pat. No: [id number] Study Date: 05/15/2020 7:38am ,Age: 02 2000, 20 Pregnancies: 1, Para 0 LMP: Unknown GA by 1st: 31w3d GA by US: 31w2d GASelected: 31w3d (From First S) FABIOLA: 07/14/2020 Referring MD: SHERI WHITESIDE Mechatronics Technician: Alia Rios RDMS CPT4: USPREGFU [facility] NAME: ROSELIA YOUNGER Radiology Department PHYS: MARIELLE.01 - Sheri Whiteside MD [address] : 2000 AGE: 20 SEX: F [place] [address] LOC: VONDA PHONE #: [phone] EXAM DATE: 05/15/2020 STATUS: REG CLI FAX #: [phone] RAD NO: Page 2 Signed Report (CONTINUED) Patient Name: ROSELIA YOUNGER Unit No: [id number] Report Has Been Amended EXAMS: CPT CODE: [id number] [place]W [place] [address] (Continued) Admitting MD: SHERI WHITESIDE Hist/Ind: SCAN 2 SIZE LESS THAN DATES MEASUREMENTS AGE GROWTH EVALUATION Measurement GA Range Srce %for GA Ratios ----- ---- ------- BPD 8.0 cm 32w3d (08q1v-93h7g) Hadl BPD 66% FL/BPD 0.74 (0.71 - 0.87) HC 29.6 cm 32w2d (05w7j-91s5x) HadlHC 63% FL/AC 0.22 (0.20 - 0.24) APD 8.8 cm APD HC/AC 1.09 (0.96 - 1.15) TAD 8.5 cm TAD CI 0.80 (0.70 - 0.86) AC 27.2 cm 31w2d (28w2d- 34w2d) Hadl AC 48% FL 5.9 cm 30w3d (82h5q-96x1d) Hadl FL 35% HL 5.0 cm 29w2d (22f2e-61e6y) Stef HL 14% GA for sonogram 31w2d (00d9v-13y6i) Weight Estimate: based on (BPD,HC,AC,FL) Hadlock Weight: 1743 gm (1927-0876) Hadlo : 3lbs, 13oz Normal: 1707 gm (6696-2959) Brenn Wt% 52% for 31.4 wks Cervical [...] gestational age. growth: Consistent with normal growth motionand organs seen: heart motion seen body and limb movements seen Placental location: Anterior left Placental maturity : Grade 2 There is no evidence of placenta previa. Amniotic fluid volume is normal. Uterus and adnexa: No significant abnormality is seen. Cervix length is 2.3 cm. Thank you for allowing us to participate in the care of this patient. [facility] NAME: MONICA YOUNGERA Radiology Department PHYS: Sheri Waddell MD [address] : 2000 AGE: 20 SEX: F [place], [place] [address] LOC: Cesar.RAD PHONE #: [phone] EXAM DATE:05/15/2020 STATUS: REG CLI FAX #: [phone] RAD NO: Page 3 Signed Report (CONTINUED) Patient Name: ROSELIA YOUNGER Unit No: [id number] Report Has Been Amended EXAMS: CPT CODE: [id number] [place] [address] (Continued) Nathan Francois M.D. Electronic Signature 05/15/2020 08:28am at 0828 Reported and signed by: Nathan Francois MD CC: Sheri Whiteside MD Technologist: Alia Rios RDMS Probe: Trnscrbd D/ (08) [email or web address] Orig Print D/T: S: 05/15/2020 (0828) [facility] NAME: CHAPARRITAROSELIA Radiology Department PHYS: Sheri Waddell MD [address] : 2000 AGE: 20 SEX: F [place], [place] [address] LOC: Cesar.RAD PHONE #: [phone] EXAM DATE: 05/15/2020 STATUS: REG CLI FAX #: [phone] RAD NO: Page 4 Signed Report Patient Name: ROSELIA YOUNGER Unit No: [id number] Report Has Been Amended EXAMS: CPT CODE: [id number] [place]W [place] [address] (Continued) [facility] NAME: ROSELIA YOUNGER Radiology Department PHYS: Sheri Whiteside MD [address] : 2000 AGE: 20 SEX: F [place], [place] [address] LOC: VONDA PHONE #: [phone] EXAM DATE: 05/15/2020 STATUS: REG CLI FAX #: [phone] RAD NO: Page 5 Signed Report- US PREG AFTER [id number] 08:48:00Patient Name: ROSELIA YOUNGER Unit No: [id number] EXAMS: CPT CODE: [id number] US PREG AFTER [address] [place] [address] [place], [place] [address] OBSTETRICAL ULTRASOUND REPORT Pat. Name: ROSELIA YOUNGER Pat. No: [id number] Study Date: 02/22/2020 7:18am , Age: 02 2000, 20 Pregnancies: 1, Para 0 LMP:Unknown GA by US: 19w3d GA Selected: 19w4d (From Known E) FABIOLA: 07/14/2020 Referring MD: SHERI WHITESIDE Mechatronics Technician: Alia Rios RDMS CPT4: CURTGVE1F Admitting MD: SHERI WHITESIDE Hist/Ind: SCAN 1 ANATOMY MEASUREMENTS AGE GROWTH EVALUATION Measurement GA Range Srce %for GA Ratios ----- ---- ------- BPD 4.5 cm 19w4d (35w6n-63o0t) Hadl BPD 49% FL/BPD 0.71 HC16.7 cm 19w2d (17w5d- 20w6d) Hadl HC 42% FL/AC 0.23 APD 4.3 cm APD HC/AC 1.22 (1.06 - 1.25) TAD 4.4 cm TAD CI 0.86 (0.70 - 0.86) AC 13.7 cm 18w5d (91l0z-39w4f) Hadl AC 32% FL 3.2 cm 19w4d (48i0l-95h3d) Hadl FL 50% HL 2.9 cm 19w3d (94q8t-45n4v) Stef HL 48% GA for sonogram 19w3d (00j9j-19j4g) Weight Estimate: based on (BPD,HC,AC,FL) Hadlock Weight: [...] heart observed Left ventricular outflow tract (LVOT) seenRegular cardiac rhythm observed Normal intracranial anatomy seen Umbilical cord insertion in fetus seen [facility] [place] [facility] NAME: ROSELIA YOUNGER Radiology Department PHYS: Sheri Whiteside MD [address] : 2000 AGE: 20 SEX: F [place], [place] [address] LOC: F.RAD PHONE #: [phone] EXAM DATE: 02/22/2020 STATUS: REG CLI FAX #: [phone] RAD NO: Page1 Signed Report (CONTINUED) Patient Name: ROSELIA YOUNGER Unit No: [id number] EXAMS: CPT CODE: [id number] US PREG AFTER TRI [address] (Continued) stomach, Renal Fossa, Bladder and Spine seen Three vessel umbilical cord noted RVOT not well seen abnormalities observed: None seen at this exam P lacental location: Anterior Left lateral Placental maturity : Grade 1 There is no evidence of placenta previa. Amniotic fluid volume is normal. Uterus and adnexa: No significant abnormality is seen. Jaci De La O M.D. Electronic Signature 02/22/2020 08:48am Electronically S igned by Jaci De La O MD on 02/22/2020 at 0848 Reported and signed by: Jaci De La O MD CC: Sheri Mercado MD Technologist: Alia Rios RDMS Probe: Trnscrbd D/ (0848) JosephG Orig Print D/T: S: 02/22/2020 (0848) [facility] NAME: ROSELIA YOUNGER Radiology Department PHYS: MARIELLEKavehSheri Nava MD [address] : 2000 AGE: 20 SEX: F [place], [place] [address] LOC: Cesar.RAD PHONE #: [phone] EXAM DATE: 02/22/2020 STATUS: REG CLI FAX #: [phone] RAD NO: Page 2 Signed Report Patient Name: ROSELIA YOUNGER Unit No: [id number] EXAMS:CPT CODE: [id number] US PREG AFTER 1ST TRI [address] (Continued) [facility] NAME: ROSELIA GARCIA Radiology Department PHYS: [facility] [[email or web address]]SUZIKavehSheri Nava MD [address] : 2000 AGE: 20 SEX: F [place], [place] [address] LOC: Cesar.RAD PHONE #: [phone] EXAM DATE: 02/22/2020 STATUS: REG CLI FAX #: [phone] RAD NO: Page 3 Signed Report Notes Date/Time Note Provider Source 2024-12-08 14:08:15 Name and verified, pt is aware of results. Pt verbalized understanding. Micaela Lanza RN 12/08/2024 2:08 PM Lanza RN [facility] 2024-12-08 11:06:54 Pt returned missed call. Wouldl dinah a return call. Aguirre [facility] 2024-12-08 10:24:43 Attempted to reach pt, no answer, left a vm Micaela Lanza RN 12/08/2024 10:24 AM [facility] 2024-12-08 08:54:47 Roselia Younger is a 24 year old female Patient is returning missed call for results. Please assist and thank you. Perez [facility] 2024-12-08 08:51:46 Attempted to reach pt, no answer, left a vm Micaela Lanza RN 12/08/2024 8:51 AM [facility] 2024-12-08 08:37:36 Roselia Younger is a 24 year old female Calling to talk to the nurse about test results that she got via nivio. Pt will like a call back: [phone] [facility] 2024-12-05 07:30:00 Addended by: MICAELA LANZA on: 12/08/2024 02:06 PM Modules accepted: Orders Lanza RN [facility] 2020-07-15 08:24:00 [facility] OB Postpart Progr Note REPORT#:[id number] REPORT STATUS: Signed DATE:07/15/20 TIME: 823 PATIENT: ROSELIA YOUNGER UNIT #: [id number] ROOM/BED: [address] : [birth year] AGE: 20 SEX: F ATTEND: Sheri Whiteside MD ADM AUTHOR: Yang Puckett MD * ALL edits or amendments must be made on the electronic/computer document * Subjective Subjective Status/Day: post (3) Patient reports: Patient reports: Yes no complaints, Yes normal lochia, Yes pain management effective, Yes tolerating po well, No voiding well (guaman in place) Objective Nursing Documentation Review Nursing Data: The data set between the solid lines has been imported from nursing documentation. Any exceptions have been noted below under Provider comments. Feeding preference: Provider comments on imported nursing data: [] General VS: Vital Signs: Date Time Temp Pulse Resp B/P B/P Pulse O2 O2 Flow FiO2 Mean Ox Delivery Rate 07/15 0545 98.6 66 17 118/77 97 07/14 2322 98.2 78 18 117/75 98 07/14 2131 98.4 70 17 114/71 97 07/14 1614 99.2 59 16 112/73 07/14 1223 97.9 64 16 115/80 96 Patient Weight Weight (lb): 120 Weight (oz): Weight (kg): 54.431 Physical Exam Neuro: Exam: alert, oriented x3, normal speech Abdomen: soft, no abnormal tenderness, no rebound tenderness Uterus: firm, involution appropriate, non-tender Fundus: below the umbilicus Lochia: absent Lacerations: Perineal laceration(s): bilateral labial, 1st degree hymen posterior vag wall High vaginal laceration: no Vulva/Perineum: left vulvar hematoma remains essentionally unchanged Diagnosis, Assessment Plan Diagnosis, Assessment Plan Free text A P: s/p PPD #3 developed left vulvar hematoma after delivery reguiring guaman was placed on ancef x 24 hrs after delevery today, pt is ready to go home. Left vulvar hematoma not increasing in size I do not feel she is ready ro have guaman rmoved. PLAN--dc home keep guaman in place instruct on using leg bag ampicillin 500mg prophylaxis return to office in one week for guaman removal at 1330 RPT #:[id number] END OF REPORT [facility] 2020-07-14 07:14:00 [facility] ([facility]) OB Postpart Progr Note REPORT#:[id number] REPORT STATUS: Signed DATE:07/14/20 TIME: 713 PATIENT: ROSELIA YOUNGER UNIT #: [id number] ROOM/BED: [address] : [birth year] AGE: 20 SEX: F ATTEND: Sheri Whiteside MD ADM AUTHOR: Yang Puckett MD * ALL edits or amendments must be made on the electronic/computer document * Subjective Subjective Status/Day: post (2) Comments: pt reports feeling better today, perineum not as painful Objective Nursing Documentation Review Nursing Data: The data set between the solid lines has been imported from nursing documentation. Any exceptions have been noted below under Provider comments. Feeding preference: Provider comments on imported nursing data: [] General VS: Vital Signs: Date Time Temp Pulse Resp B/P B/P Pulse O2 O2 Flow FiO2 Mean Ox Delivery Rate 07/14 0120 98.3 74 18 125/83 96 07/13 2351 87.0 07/13 2351 98.0 64 119/68 07/13 1957 90.0 07/13 1957 61 124/69 07/13 1725 98.1 07/13 1442 84.0 07/13 1442 67 118/62 07/13 1216 90.0 07/13 1216 97.9 60 19 130/67 07/13 0755 83.0 07/13 0755 59 112/67 Patient Weight Weight (lb): 120 Weight (oz): Weight (kg): 54.431 Physical Exam Neuro: Exam: alert, oriented x3, normal speech Abdomen: soft, no abnormal tenderness, no rebound tenderness Uterus: firm, involution appropriate, non-tender Fundus: below the umbilicus Lochia: absent Lacerations: Perineal laceration(s): bilateral labial, 1st degree hymen posterior vag wall High vaginal laceration: no Add'l comments: vulvar hematoma remains enlarged, size is equal to yesterday's exam. Today not aspurple as yesterday;area remains soft. No drainage/ bleeding noted Diagnosis, Assessment Plan Diagnosis, Assessment Plan Free text A P: 20 yo s/p , developed vulvar hematoma after delivery. Size of hematoma remains stable plan--today will start sitz baths with nurse's assistance and continue ice packs guaman to be dc'd tomorrow at 0722 RPT #:[id number] END OF REPORT [facility] 2020-07-13 08:38:00 [facility] ([facility]) Clinical Note REPORT#:[id number] REPORT STATUS: Signed DATE:07/13/20 TIME: 08 PATIENT: ROSELIA YOUNGER UNIT #: [id number] ROOM/BED: [address] : 02 AGE: 20 SEX: F ATTEND: Sheri Whiteside MD ADM AUTHOR: Deborah Ferrell MD * ALL edits or amendments must be made on the electronic/computer document * Clinical Note Note: Examined pt at bedside with Dr. Puckett, oncoming doctor The labia is now larger and has purple hue towards the vagina. Still squishy. No blood extruded from repaired laceration, but small clot seen in the inferior edge. Right labia normal. Pt without pain or complaints. Guam[place] in place. UOP 700mL since being placed @190. Vital Signs: Date Time Temp Pulse Resp B/P B/P Pulse O2 O2 Flow FiO2 Mean Ox Delivery Rate 07/13 0755 83.0 07/13 0755 59 112/67 07/13 0555 98.1 18 07/13 0555 91.0 07/13 0555 53 122/72 07/13 0238 91.0 / 0238 53 126/68 07/13 0042 104.0 07/13 0042 53 139/81 07/12 2215 89.0 07/12 2215 60 120/69 07/124 89.0 07/124 59 122/69 07/12 2059 81.0 07/12 2059 68 110/66 07/12 2044 77.0 07/124 60 104/59 Labs: Laboratory Tests: 07/13 07/12 07/12 0550 1240 1225 Coagulation PT (10.4 - 12.4 secs) 10.6 PTT ([place]) (22 - 38 secs) 26.5 Fibrinogen (309 - 518 mg/dL) 323 Hematology WBC (6.6 - 12.1 K/mm3) 25.4 *H 13.6 H RBC (3.45 - 5.01 M/mm3) 3.84 4.84 Hgb (10.7 - 13.9 g/dL) 10.8 13.2 Hct (32.1 - 42.1 %) 31.8 L 40.9 MCV (84.1 - 94.8 fL) 83 L 85 MCH (27 - 35 pg) 28.1 27.3 MCHC (32.2 - 34.1 gm/dL) 34.0 32.3 RDW (12.4 - 16.5 %) 16.0 15.8 Plt Count (133 - 385 K/mm3) 146 193 MPV (9.1 - 12.7 fl) 14.4 H Neut % (Auto) (56.5 - 79.4 %) 81.7 H 76.7 Lymph % (Auto) (14.3 - 34.3 %) 9.7 L 14.5 [place] % (Auto) (5.1 - 10.4 %) 7.7 7.9 Eos % (Auto) (0.1 - 3.0 %) 0.0 L 0.1 Baso % (Auto) (0.1 - 1.0 %) 0.2 0.2 Neut # (Auto) (K/mm3) 20.7 10.4 Lymph # (Auto) (K/mm3) 2.5 2.0 [place] # (Auto) (K/mm3) 2.0 1.1 Eos # (Auto) (K/mm3) 0.01 0.02 Baso # (Auto) (K/mm3) 0.1 0.0 Immature Plt Fraction (0.0 - 10.8 %) 22.8 H Serology Treponema pallidum Ab (NONREACTIVE) NONREACTIVE Hep Bs Antigen (NONREACTIVE) NONREACTIVE Hepatitis C Antibody (NONREACTIVE) NONREACTIVE Hep C Ab Signal/Cutoff (<0.80) 0.19 HIV 1 2 Antibody (NONREACTIVE) NONREACTIVE SARS-CoV-2 Ag (Rapid) (NEGATIVE) NEGATIVE Pt is on dose #[address] Puckett and I discussed with the pt that at this time, we will still be leaving it alone and continued observation. Pt and boyfriend in agreement. at 0842 RPT #:[id number] END OF REPORT [facility] 2020-07-13 03:23:00 [facility] ([facility]) Clinical Note REPORT#:[id number] REPORT STATUS: Signed DATE:07/13/20 TIME: 322 PATIENT: ROSELIA YOUNGER UNIT #: [id number] ROOM/BED: [address] : 02 AGE: 20 SEX: F ATTEND: Sheri Whiteside MD ADM AUTHOR: Deborah Ferrell MD * ALL edits or amendments must be made on the electronic/computer document * Clinical Note Note: TEODORO [place], concerned hematoma is enlarging. Dr. Carmona had asked her to take the ice off for a bit @0045 Pt in NAD, laying in bed, easily arousable. VS 126/68 HR 53, most recent temp 98.6 States baby ate again Able to move feet and legs Left labial hematoma appears squishy but not as cold as the ice pack has been off. Small amount of blood at draining area inferior posterior vagina. Small clots seen. Fundus firm. Pt denies pain. At this time, pt still VSS, CBC due in 2 hours. Will continue to monitor. at 0333 RPT #:[id number] END OF REPORT [facility] 2020-07-12 21:10:00 [facility] ([facility]) Clinical Note REPORT#:[id number] REPORT STATUS: Signed DATE:07/12/20 TIME: 2109 PATIENT: ROSELIA YOUNGER UNIT #: [id number] ROOM/BED: [address] : 02 AGE: 20 SEX: F ATTEND: Sheri Whiteside MD ADM AUTHOR: Ketan Gregorio MD * ALL edits or amendments must be made on the electronic/computer document * Clinical Note Note: Asked to reevaluate the hematoma. Expected increased edema from ice-pack, Decreased bleeding at apex Impression- Contained left labial hematoma that appears to be minimally expanded. Recommend continued ice pack and observation at this time at 2111 RPT #:[id number] END OF REPORT [facility] 2020-07-12 20:05:00 [facility] ([facility]) Clinical Note REPORT#:[id number] REPORT STATUS: Signed DATE:07/12/20 TIME: 2004 PATIENT: ROSELIA YOUNGER UNIT #: [id number] ROOM/BED: [address] : 02 AGE: 20 SEX: F ATTEND: Sheri Whiteside MD ADM AUTHOR: Ketan Gregorio MD * ALL edits or amendments must be made on the electronic/computer document * Clinical Note Note: Asked by Dr. Ferrell to advise on management of this patient who has developed a large plum-sized hematoma left labium majus beneath a laceration repair following a spontaneous vaginal delivery. Some oozing at the apex. Advised ice-pack, Guaman and reassesment in 2-3 hours at 2008 RPT #:[id number] END OF REPORT [facility] 2020-07-12 19:10:00 [facility] ([facility]) Clinical Note REPORT#:[id number] REPORT STATUS: Signed DATE:07/12/20 TIME: 1909 PATIENT: ROSELIA YOUNGER UNIT #: [id number] ROOM/BED: [address] : 02 AGE: 20 SEX: F ATTEND: Sheri Whiteside MD ADM AUTHOR: Deborah Ferrell MD * ALL edits or amendments must be made on the electronic/computer document * Clinical Note Note: Called by RN to report a vulvar hematoma that has developed in the past 30 min. I came to bedside. Exam: NAD, pt without complaints. Epidural off but catheter still in place. Denies pain. VS 123/73 HR 83 Temp 100.9 (@1829 postop) Left labia twice the size of right (plum-sized.) there is leaking fresh blood from the apex of the labia. There is a firm inferior mass within the labia about blueberry sized. Uterus is firm and no bleeding seen coming from uterus. Right labia lac is hemostatic as is posterior hymenal lac. Dr. Gregorio came to bedside to assess with me. He was able to express some of the hematoma from that blueberry sized clot; labia softer after this time. Plan with him developed to place guaman and keep pressure and ice on the hematoma and evaluate for 2-3 hours. If worsening, may need to go to the OR for repair. This was all explained to the patient and her boyfriend to expressed understanding. Nursing shift change was occuring and both handoff nurse (Zara) and oncoming nurse (kayleigh) were able to view the hematoma to know where it is coming from. Reminded her that the lap used for pressure will become more bloody as the hematoma works its way out of the labia. at 1916 RPT #:[id number] END OF REPORT [facility] 2020-07-12 19:10:00 [facility] ([facility]) Clinical Note REPORT#:[id number] REPORT STATUS: Signed DATE:07/12/20 TIME: 1909 PATIENT: ROSELIA YOUNGER UNIT #: [id number] ROOM/BED: [address] : 02 AGE: 20 SEX: F ATTEND: Sheri Whiteside MD ADM AUTHOR: Deborah Ferrell MD * ALL edits or amendments must be made on the electronic/computer document * See Addendum Clinical Note Note: Called by RN to report a vulvar hematoma that has developed in the past 30 min. I came to bedside. Exam: NAD, pt without complaints. Epidural off but catheter still in place. Denies pain. VS 123/73 HR 83 Temp 100.9 (@1829 postop) Left labia twice the size of right (plum-sized.) there is leaking fresh blood from the apex of the labia. There is a firm inferior mass within the labia about blueberry sized. Uterus is firm and no bleeding seen coming from uterus. Right labia lac is hemostatic as is posterior hymenal lac. Dr. Gregorio came to bedside to assess with me. He was able to express some of the hematoma from that blueberry sized clot; labia softer after this time. Plan with him developed to place guaman and keep pressure and ice on the hematoma and evaluate for 2-3 hours. If worsening, may need to go to the OR for repair. This was all explained to the patient and her boyfriend to expressed understanding. Nursing shift change was occuring and both handoff nurse (Zara) and oncoming nurse (kayleigh) were able to view the hematoma to know where it is coming from. Reminded her that the lap used for pressure will become more bloody as the hematoma works its way out of the labia. at 1916 Addendum 1: 07/12/202104 by Deborah Ferrell MD Follow up at 1.5 hours larger, but much of it is ice edema. Guaman in place No more oozing at apex, but there is some oozing from a new lac in the left labia. Dr. Carmona at [facility] again to assess. He feels that we can continue with ice and expetant management. Norman line to extent of hematoma now Will add ancef scheduled secondary to manipulation Reviewed what was going on with patient and her boyfriend the course and our evaluation. at 2116 RPT #:[id number] END OF REPORT [facility] 2020-07-12 17:47:00 [facility] ([facility]) OB Delivery Note REPORT#:[id number] REPORT STATUS: Signed DATE:07/12/20 TIME: 174 PATIENT: ROSELIA YOUNGER UNIT #: [id number] ROOM/BED: [address] : 02 AGE: 20 SEX: F ATTEND: Sheri Whiteside MD ADM AUTHOR: Deborah Ferrell MD * ALL edits or amendments must be made on the electronic/computer document * OB Delivery Nursing Documentation Review Nursing data: The data set between the solid lines has been imported from nursing documentation. Any exceptions have been noted below under Provider comments. _ ROM date: 07/12/20 ROM time: 1510 Membranes rupture method: AROM Amniotic fluid color: Clear Amniotic fluid amount: EGA (weeks/days): EGA at admit (weeks): EGA at delivery (weeks): Steroids prior to arrival: Antibiotic prophylaxis given: evaluation at delivery: Delivery date infant A: Delivery time infant A: Birthweight (gm) A: Weight (lb) infant A: Weight (oz) A: Gender infant A: Female 1 minute infant A: 5 minutes A: 10 minutes A: Cord pH obtained infant A: Vacuum time A: Vacuum # pulls A: Vacuum # popoffs infant A: QBL at delivery: __ Provider comments on imported nursing data: [] Pre-delivery GBS status: GBS status: negative evaluation at delivery: NRP certified personnel EGA at delivery (wks/days): 39 weeks (39w5d) Baby A Information Baby A information Delivery date: 07/12/20 Delivery time: 1721 status: live born Wt of baby (grams): 3290 Wt of baby (lbs/oz): 7lb4oz Wt of baby: not yet available Gender: female 1 minute: 9 5 minutes: 9 Presentation: vertex Anomalies: none seen Nuchal cord Baby A Nuchal cord: no Vaginal Delivery Vaginal delivery: Labor: augmented Medications/Devices used: oxytocin (for about 30 min only), amniotomy Vaginal delivery: spontaneous Amniotic fluid: clear, terminal meconium as baby delivered Anesthesia type: epidural anesthesia Episiotomy repair: not applicable Laceration repair: yes Episiotomy/laceration suture: 3-0 (chromic) Vaginal hematoma: observed (see clinical note) Placenta: spontaneous, intact, 3 vessels Post delivery meds used: oxytocin Count: correct, vag exam neg for sponges Mother's condition: mother stable Infant's condition: stable in room Lacerations: Perineal laceration(s): bilateral labial, 1st degree hymen posterior vag wall High vaginal laceration: no Extraction details OVD performed: no Shoulder dystocia present: no Additional comments: Came to check pt and she was c/c/+2 Pt pushed over 20 min to deliver over intact perineum a viable female . Head came out compound with right arm. Gently restitured to GABRIELA. Gentle downward traction was used to delivery the anterior shoulder followed by the posterior shoulder. She was vigorous and crying upon delivery. Delayed cord clamping was done x1 minute and then the cord was clamped by and then cut by [place]. Cord blood collected. The vulva, vagina, and perineum were inspcted and bilateral labial and 1st degre posterior vag hymenal wall lac was found. These were repaired easily with 3-0 chromic. Placenta delivered spontaneously, intact, with 3 vessel cord. Uterus was firm with massage and pitocin. Blood Loss/Details Blood loss at delivery: <1000 ml, no more than expected EBL at delivery (ml's): 350 at 1921 RPT #:[id number] END OF REPORT [facility] 2020-07-12 13:07:00 [facility] ([facility]) OB Admission / H P REPORT#:[id number] REPORT STATUS: Signed DATE:07/12/20 TIME: 1307 PATIENT: ROSELIA YOUNGER UNIT #: [id number] ROOM/BED: [address] : 02 AGE: 20 SEX: F ATTEND: Sheri Whiteside MD ADM AUTHOR: Deborah Ferrell MD * ALL edits or amendments must be made on the electronic/computer document * OB Admission H P Hx Nursing Documentation Review Nursing data: The data set between the solid lines has been imported from nursing documentation. Any exceptions have been noted below under Provider comments. Current data Steroids prior to arrival: ROM date: ROM time: EGA (weeks/days): EGA at admit (weeks): EDC date: 07/14/20 Prior history : 1 Para: 0 Term: : Abortions spontaneous: Abortions induced: Living children: Ectopic: Stillbirths: Live births: deaths: Number of previous C/S: Reported maternal labs/data Blood type: Rh type: Rubella: Hepatitis B: HIV exposure test: VDRL: Group B beta strep: Rho(D) immune globulin this preg: Monitor mode - UA: Feeding preference: Provider comments on imported nursing data: [] Chief complaint: uterine contractions HPI: Roselia is an 20 y/o @39w5d admitted in labor. Pregnany complicated by chalmydia x2, unable to tolerate po azithro. Given IV azithro in MAC with subsequent GLENROY 06/25 neg. Also has mild anemia--noncompliant with meds. Got IV iron x3. Pt's contractions started this AM and got worse. No LOF, VB. history: : 1 Term: 0 : 0 Abortus: 0 Living children: 0 Complications (prev preg): none Previous : none Current : EDC: 07/14/20 Admission EGA (wks/days): 39 weeks (39w5d) Conditions of : anemia, STI (chamydia x2) Notes: labs: LABS: Hgb/Hct: 12.1/37.3 Platelets: 338 Type/rH: A positive IDC: negative Rubella: NON-IMMUNE HIV: negative HepBsAg: negative RPR: NR Hep C: not done TSH/FT4: normal 09/2019 Urine culture/Urinalysis: Negative Pap: At age 23 GC/CT/Trich: +chlamydia. Repeat testing 01/23/2020 positive again, Negative , Positive 05/15, tx'd IV azithromycin, Repeat testing QUAD screen: NA MSaFP: Declines Genetic testing: NIPT with gender Carrier screening: CF/SMA/FX. She is a carrier for CF. FOB declined testing. Negative SMA/FX Hgb Electro: negative Edy Sachs: NA Catholic panel: NA 1hr GTT: 70 3 hr GTT: NA Rhogam: NA 3rd trimester CBC: 9.9/30.7 3rd trimester RPR: NR 3rd trimester HIV: not done GBS: negative Past medical history: chlamydia, CF carrier, anemia, underweight, teen Past surgical history: denies PSH Social history: no alcohol use, no tobacco use, no drug use Medications: not taking any of her prescribed PNV or iron Allergies Coded Allergies: No Known Allergies (07/12/20) Objective General VS: Patient Weight Weight (lb): Weight (oz): Weight (kg): 133/78 Physical Exam Abdomen: gravid, soft, no abnormal tenderness Uterine activity: Monitor: toco Frequency (description): regular Frequency (minutes): 2 Pelvic exam: Pelvis clinically adequate: probably Cervical/ exam: Dilatation (cm): 4 (by RN @1212) presentation: cephalic (per RN) Membranes: Membranes: Intact Baby A: Baby A baseline: 155 bpm Baby A variability: moderate 6-25 bpm Baby A accelerations: 10 X 10 Baby A decelerations: none Baby A FHR category: category 1 Result Findings/Data: Laboratory Tests: 07/12 1240 Hematology WBC (6.6 - 12.1 K/mm3) 13.6 H RBC (3.45 - 5.01 M/mm3) 4.84 Hgb (10.7 - 13.9 g/dL) 13.2 Hct (32.1 - 42.1 %) 40.9 MCV (84.1 - 94.8 fL) 85 MCH (27 - 35 pg) 27.3 MCHC (32.2 - 34.1 gm/dL) 32.3 RDW (12.4 - 16.5 %) 15.8 Plt Count (133 - 385 K/mm3) 193 Neut % (Auto) (56.5 - 79.4 %) 76.7 Lymph % (Auto) (14.3 - 34.3 %) 14.5 [place] % (Auto) (5.1 - 10.4 %) 7.9 Eos % (Auto) (0.1 - 3.0 %) 0.1 Baso % (Auto) (0.1 - 1.0 %) 0.2 Neut # (Auto) (K/mm3) 10.4 Lymph # (Auto) (K/mm3) 2.0 [place] # (Auto) (K/mm3) 1.1 Eos # (Auto) (K/mm3) 0.02 Baso # (Auto) (K/mm3) 0.0 Immature Plt Fraction (0.0 - 10.8 %) 22.8 H Diagnosis, Assessment Plan Diagnosis, Assessment Plan Problem List/A P: 1. High risk teen in third trimester 2. Active labor at term 3. Hx of maternal chlamydia infection, currently Free Text A P: 20 Y/O @39w5d here in active labor -labor: own mechanism for now. Consider amniotomy/pit PRN -FHT Cat I okay -Pain: epidural right away -chlamydia s/p azithro (notify pedi) -CF carrier (notify pedi) -anemia, resolved as of today -social work to see her PP -Rubella NI--MMR PP -GBS neg at 1922 RPT #:[id number] END OF REPORT [facility] 2020-01-26 21:27:00 [facility] ([facility]) Clinical Note REPORT#:[id number] REPORT STATUS: Signed DATE:01/26/20 TIME: 2126 PATIENT: ROSELIA YOUNGER UNIT #: [id number] ROOM/BED: [address] : 02 AGE: 20 SEX: F ATTEND: Sheri Whiteside MD ADM AUTHOR: Sheri Whiteside MD * ALL edits or amendments must be made on the electronic/computer document * Clinical Note Note: H P 20 yo at 15 5/7 weeks being brought into [facility] for IV azithromycin for the treatment of chlamydia as patient has tested positive early in for chlamydia and re-tested positive again. Initially, she was tx'd with 1 gram of azithromycin which she vomitted 45 minutes later. She was re-tx'd and given instructions on partner treatment. When GLENROY done recently, she was still positive for chlamydia. She was counselled and brought in for directly observed therapy with 1 gram azithromycin. She called 2.5 hours later and reported emesis. Therefore, she is being brought into the hospital for treatment. She and her mother are present and have both been counselled re: seriousness of chlamydia and middle or intermediate school principal problems and the risk of . Patient is a very poor historian and does not really try to speak or answer questions. She does not really remember if she ever took the 2nd treatment the first time around with chlamydia and doesn't really remember if boyfriend tx'd. This time, her mother called his parents and they are supposed to take him to the doctor tomorrow. Patient denies sexual activity but her mother indicates that she does not believe her. I reviewed again with them NO SEX until over 7 days AFTER BOTH TREATED and I recommend condom use 100% of the time. POB: none STOCK SPECULATOR: Cycles monthly. Chlamydia 11/2019 PMHx: CF carrier-FOB not tested. Patient is underweight. Denies anorexia or bulemia. MEDS: Does not take PNV or folic acid and cannot explain why NKDA PSH: negative SOC: student. Lives with her mom. Boyfriend and his family aware Vital Signs: Date Time Temp Pulse Resp B/P B/P Pulse O2 O2 Flow FiO2 Mean Ox Delivery Rate 01/25 1955 99.0 74 16 90/52 64.4 100 01/25 1601 98.2 81 17 104/70 81.5 99 NAD exam deferred A/P: 20 yo 15 5/7 weeks with recurrent or incompletely treated chlamydia in and inability to tolerate oral treatment -IV azithromycin 500mg q 24 hours x 2 -23 hour obs -Home after treatment with f/u testing -Abstinence until 7+ days after boyfriend treated -Condoms at all times -DW patient and her mother risk of demise at 2139 RPT #:[id number] END OF REPORT [facility]
[2025-02-03] MEDS ORDERED: LIDOCAINE 2% W/EPI 1:200,000 MPF 20 ML VIAL IM ONE (08:19)
--- NOTE | 2025-02-03 08:54 | ER ---
Nurse's Notes [facility] Name: Lili Youngre Age: 25 yrs Sex: Female : 2000 Arrival Date: 02/03/2025 Time: 07:54 Bed 11 Private MD: Diagnosis: Dog bite, laceration with loose repair Presentation: 02/03 08:10 Chief complaint: Patient states: Dog bite to right forearm, laceration noted to jl7 posterior aspect of right forearm, dog is foster from [facility], [place] [employer] notified. 08:10 Coronavirus screen: At this time, the client does not indicate any symptoms associated jl7 with coronavirus-19. Ebola Screen: No symptoms or risks identified at this time. Initial Sepsis Screen: Does the patient meet any 2 criteria? No. Patient's initial sepsis screen is negative. Does the patient have a suspected source of infection? No. Patient's initial sepsis screen is negative. Risk Assessment: Do you want to hurt yourself or someone else? Patient reports no desire to harm self or others. Onset of symptoms was February 03, 2025. 08:10 Method Of Arrival: Ambulatory [facility] 08:10 Acuity: BENJY 4 jl7 Triage Assessment: 08:10 Bite description: bite sustained to dorsal aspect of right forearm and palmar aspect of jl7 right forearm by a dog, animal information: vaccination(s) is unknown. General: Appears in no apparent distress. uncomfortable, Behavior is cooperative, crying, restless. Pain: Complains of pain in right arm. 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 - Infectious Disease History:: Denies. - Social history:: Smoking status: Patient denies any tobacco usage or history of. Screenin:15 [facility] ED Fall Risk Assessment (Adult) History of falling in the last 3 months, jl7 including since admission No falls in past 3 months (0 pts) Confusion or Disorientation No (0 pts) Intoxicated or Sedated No (0 pts) Impaired Gait No (0 pts) Mobility Assist Device Used No (0 pt) Altered Elimination No (0 pt) Score/Fall Risk Level 0 - 2 = Low Risk Oriented to surroundings, Maintained a safe environment. Abuse screen: Denies threats or abuse. Denies injuries from another. Nutritional screening: No deficits noted. Tuberculosis screening: No symptoms or risk factors identified. Assessment: 09:34 Reassessment: Cleansed and dressed wound prior to discharge. General: Appears ss uncomfortable, slender, Behavior is cooperative, anxious. Neuro: Level of Consciousness is awake, alert. Derm: Skin is pink, warm \T\ dry. Vital Signs: 08:10 BP 130 / 84; Pulse 79; Resp 19; Temp 98.2; Pulse Ox 100% ; Weight 45.36 kg; Pain 10/10; jl7 08:10 Pain Scale: Adult jl7 ED Course: 07:56 Patient arrived in ED. im 08:00 Francisca Wood MD is Attending Physician. sp3 08:01 Kahlil Henriquez RN is Primary Nurse. jl7 08:10 Arm band placed on right wrist. jl7 08:15 Patient has correct armband on for positive identification. Provided Education on: use jl7 of call gomez. 08:43 Triage completed. jl7 09:34 Assist provider with laceration repair on dorsal aspect of right forearm that was 2.5 ss cm. or less using sutures. Performed by Francisca Wood MD Dressed with 4X4s, Kerlix, Patient tolerated well. Patient did not have IV access during this emergency room visit. Administered Medications: 08:25 Drug: Lidocaine-Epinephrine Infiltration -2 % (1:100,000) 10 ml Infiltration once; to bedside {Note: administered by Dr. Wood.} Route: Infiltration; Medication: 09:34 VIS not applicable for this client. Outcome: 08:53 Discharge ordered by . sp3 09:34 Discharged to home ambulatory, with family, 09:34 Condition: good 09:34 Discharge instructions given to patient, family, Instructed on discharge instructions, follow up and referral plans. medication usage, Demonstrated understanding of instructions, follow-up care, medications, Prescriptions given X 1, 09:35 Patient left the ED. Signatures: Denise Waterman RN RN Kahlil Henriquez RN RN jl7 Francisca Wood MD MD sp3 Nicole Paz
--- NOTE | 2025-02-03 08:54 | EDPHYS ---
Physician Documentation [facility] Name: Lili Younger Age: 25 yrs Sex: Female : 2000 Arrival Date: 02/03/2025 Time: 07:54 Bed 11 Private MD: ED Physician Francisca Wood HPI: 02/03 08:15 This 25 yrs old Female presents to ER via Unassigned with complaints of Dog sp3 Bite. 08:15 25-year-old female with no significant past medical history presents with dog bite sp3 injuries to the right forearm. Patient has laceration as well as multiple puncture bites on the anterior and posterior aspect distal to the elbow. Dog was from [facility] and is unknown why there was an incident. Patient vague on story. No other injuries reported. ROS otherwise negative.. 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 - Infectious Disease History:: Denies. - Social history:: Smoking status: Patient denies any tobacco usage or history of. ROS: 08:17 Constitutional: Negative for fever, chills, and weight loss, Eyes: Negative for injury, sp3 pain, redness, and discharge, Neck: Negative for injury, pain, and swelling, Cardiovascular: Negative for chest pain, palpitations, and edema, Respiratory: Negative for shortness of breath, cough, wheezing, and pleuritic chest pain, Abdomen/GI: Negative for abdominal pain, nausea, vomiting, diarrhea, and constipation, Back: Negative for injury and pain, Neuro: Negative for headache, weakness, numbness, tingling, and seizure, Psych: Negative for depression, anxiety, suicide ideation, homicidal ideation, and hallucinations, Allergy/Immunology: Negative for hives, rash, and allergies, Endocrine: Negative for neck swelling, polydipsia, polyuria, polyphagia, and marked weight changes, Hematologic/Lymphatic: Negative for swollen nodes, abnormal bleeding, and unusual bruising, 08:17 All other systems are negative, Exam: 08:17 Constitutional: This is a well developed, well nourished patient who is awake, alert, sp3 and in no acute distress. Head/Face: Normocephalic, atraumatic. Eyes: Pupils equal round and reactive to light, extra-ocular motions intact. Lids and lashes normal. Conjunctiva and sclera are non-icteric and not injected. Cornea within normal limits. Periorbital areas with no swelling, redness, or edema. Neck: Trachea midline, no thyromegaly or masses palpated, and no cervical lymphadenopathy. Supple, full range of motion without nuchal rigidity, or vertebral point tenderness. No Meningismus. Chest/axilla: Normal chest wall appearance and motion. Nontender with no deformity. No lesions are appreciated. Cardiovascular: Regular rate and rhythm with a normal S1 and S2. No gallops, murmurs, or rubs. Normal PMI, no JVD. No pulse deficits. Respiratory: Lungs have equal breath sounds bilaterally, clear to auscultation and percussion. No rales, rhonchi or wheezes noted. No increased work of breathing, no retractions or nasal flaring. Abdomen/GI: Soft, non-tender, with normal bowel sounds. No distension or tympany. No guarding or rebound. No evidence of tenderness throughout. Back: No spinal tenderness. No costovertebral tenderness. Full range of motion. Neuro: Awake and alert, GCS 15, oriented to person, place, time, and situation. Cranial nerves II-XII grossly intact. Motor strength 5/5 in all extremities. Sensory grossly intact. Cerebellar exam normal. Normal gait. Psych: Awake, alert, with orientation to person, place and time. Behavior, mood, and affect are within normal limits. 08:17 Musculoskeletal/extremity: 3 cm laceration to the right wrist just proximal to the hand noted. Multiple puncture wounds on anterior and posterior forearm coupled with superficial rations also noted. There is no wound puncturing any of the joints noted. No tendon involvement on the laceration. Pulses normal and distal neurovascular exam is also normal.. Vital Signs: 08:10 BP 130 / 84; Pulse 79; Resp 19; Temp 98.2; Pulse Ox 100% ; Weight 45.36 kg; Pain 10/10; jl7 08:10 Pain Scale: Adult jl7 Laceration: 08:51 Wound Repair of 3cm ( 1.2in ) subcutaneous laceration to right arm. Sutures only sp3 loosely approximate wound to allow drainage of any potential infection from dog bite. Wound was gaping prior and now is loosely approximated.. Distal neuro/vascular/tendon intact. Anesthesia: Local anesthetic administered with 6 mls of 1% lidocaine w/ Epi. Wound prep: Extensive cleansing, Wound irrigation by me. Skin closed with 3 4-0 Prolene using interrupted sutures and sterile technique. Dressed with Bacitracin, non-adherent dressing. Patient tolerated well. MDM: 08:00 Medical Screening Exam initiated sp3 08:18 Data reviewed: vital signs, nurses notes. ED course: 25-year-old female with laceration sp3 and puncture wound to the right upper extremity forearm area. Will clean the areas extensively and loosely approximate skin on the laceration to allow drainage. I have told patient that sutures will need to be removed and there will be scar formation secondary to the secondary intention healing. All puncture wounds will also be cleaned. Patient be sent home on Augmentin. Tetanus is up-to-date.. 02/03 08:11 Order name: Prolene, Sutures; Complete Time: 08:25 sp3 Administered Medications: 08:25 Drug: Lidocaine-Epinephrine Infiltration -2 % (1:100,000) 10 ml Infiltration once; to bedside {Note: administered by Dr. Wood.} Route: Infiltration; Disposition Summary: 02/03/25 08:53 Discharge Ordered Notes: Location: Home sp3 Condition: Stable sp3 Diagnosis - Dog bite, laceration with loose repair sp3 Followup: sp3 - With: Private Physician - When: Upon discharge from the Emergency Department - Reason: Continuance of care Discharge Instructions: - Discharge Summary Sheet sp3 - Sutured Wound Care, [id number] sp3 - Animal Bite, Adult sp3 Forms: - Medication Reconciliation Form sp3 - Antibiotic Education sp3 - Prescription Opioid Use sp3 - Patient Portal Instructions sp3 - Leadership Thank You Letter sp3 Prescriptions: - Augmentin 875-125 mg Oral Tablet - take 1 tablet ORAL route every 12 hours for 10 days; 20 tablet; Refills: 0, sp3 Product Selection Permitted Signatures: Denise Waterman, RN RN ss Kahlil Henriquez RN RN jl7 Francisca Wood MD MD sp3 Corrections: (The following items were deleted from the chart) 08:17 08:15 25-year-old female with no significant past medical history presents with. sp3 sp3
[2025-02-03 09:42] VITALS: BP 130/84; TEMP 98.2; O2SAT 100
== END 2025-02-03 09:35 | disposition home or self-care (01) ==
LOC: ER 07:54
DX: S51.811A Laceration without foreign body of right forearm, initial encounter (principal); W54.0XXA Bitten by dog, initial encounter
CPT/HCPCS: 12032; 99283